=== PATIENT | female | born 1985 | race Caucasian/White ===

== ENCOUNTER 2023-07-16 10:08 | Emergency (ER) | payer OTHER, SELFPAY ==
[2023-07-16 10:14] VITALS: BP 114/71
--- NOTE | 2023-07-16 13:19 | ED.GENMED ---
History of Present Illness
General
Chief Complaint: Musculo-Skeletal Complaint
Source: patient
Exam Limitations: none
Time Seen by Provider: 07/16/23 12:08
Nursing documentation reviewed up to this point in time: agreed with
Travel History
Have you had any contact with someone who has COVID-19?: No
Do you have any symptoms of coronavirus? Fever > 100 degrees, chills, cough, shortness of breath, sore throat, loss of taste or smell, muscle aches, or headache?: No
History of Present Illness
History of Present Illness:
38-year-old female presenting to the emergency department today with concerns of 2 days of discomfort to the right knee after a fall where she landed directly on the knee pain since increased discomfort with movement and range of motion. Denies
fevers or systemic symptoms nausea vomiting or additional concerns no numbness or weakness.
Past History
Past History
ED Past Medical History: None
ED Past Surgical History: (X2), Orthopedic (Right arm fracture repair) and Other (Cervical lymph node biopsy (benign) at age 18.)
Social History
Tobacco: Smoker
Alcohol: Occasional
Drug: None
Personal: Single
Living: with family
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
Family History
Family History: Other (Noncontributory)
Review of Systems
Review of Systems
Allergies reviewed?: Yes
All Other Systems: ROS reviewed and negative except as documented in HPI and ROS
Phy Exam
Physical Exam
Physical Exam:
GENERAL: Alert , in no apparent distress
EYE: pupils equal and reactive
NECK: Supple, no significant adenopathy.
ENT: o/p clr, mmm.
CARDIAC: Regular rate and rhythm .
LUNGS: Clear breath sounds bilaterally, no acute respiratory distress, no wheezes/rales/rhonchi
ABDOMEN: Soft, without focal tenderness, no r/g, no cvat
NEUROLOGICAL: Alert and oriented, no focal neuro deficits
SKIN: Warm and dry, skin intact.
MUSCULOSKELETAL: Swelling and redness to the right knee surrounding the patella. Increased discomfort with range of motion but does have full range of motion. No tenderness throughout the remainder of the knee. Well perfused.
PSYCH: Normal and appropriate interaction.
Course
Orders/Labs/Results
Orders:
Orders
07/16/23 11:36
Knee, Right 4 or More Views [CR Knee- Right 4 Or More View*] Urgent
Comment:
Reason For Exam: pain, trauma
07/16/23 13:18
Knee Immobilizer Right-Treatme ONCE
07/16/23 13:19
Ibuprofen [Motrin] 800 mg PO NOW STA
Vital Signs
Initial and Last Documented VS:
Initial Vital Signs
Temp Pulse Resp BP Pulse Ox
98.5 F 106 18 114/71 98
07/16/23 10:14 07/16/23 10:14 07/16/23 10:14 07/16/23 10:14 07/16/23 10:14
Last Documented Vital Signs
Temp Pulse Resp BP Pulse Ox
98.5 F 106 18 114/71 98
07/16/23 10:14 07/16/23 10:14 07/16/23 10:14 07/16/23 10:14 07/16/23 10:14
MDM/Problems Addressed
MDM/Problems Addressed:
38-year-old female presenting to the emergency department today with concerns of right-sided knee discomfort after falling directly on her knee 2 days ago. Gradually since. Swelling discomfort mainly surrounding the patella. X-rays without signs
of fracture patient generally well-appearing no acute distress otherwise but does have tenderness directly to the patellar region. Likely sprain and potential bursitis to the area. Patient given knee immobilizer and advised for close outpatient
follow-up. Strict return precautions were discussed for any worsening symptoms.
*Critical Care Note
Total Time (30-74mins, 75-104mins- exclusive of procedures): Not Applicable
ED Attending Note
-
Portions of this chart may have been created with voice recognition software.� Occasional wrong word or��sound alike� substitutions may have occurred due to the inherent limitations of voice recognition software.
Discharge Plan
Departure
Patient Disposition: Home (Routine Discharge)
Date of Disposition: 07/16/23
Time of Disposition: 13:30
Patient with high blood pressure during this ER visit?: No
Condition: Good
Covid-19: Not Applicable
Discharge Problem:
Right knee sprain
Instructions: Knee Sprain (DC)
Prescriptions:
New
ibuprofen 600 mg tablet
600 mg PO TID PRN (Reason: Pain) Qty: 20 0RF
No Action
hydrocodone-acetaminophen 1 EACH tablet
1 ea PO DAILY
cephalexin 500 MG tablet
500 mg PO Q6H
Referrals:
Juan Luis Gillespie, [Family Provider] -
Raul Kilpatrick MD [Active] - Follow up in 5-7 days
Activity Restrictions/Additional Instructions:
You came to the emergency department today with concerns of knee discomfort. Please rest ice compress and elevate over the next few days as symptoms will hopefully improve. Please follow closely with orthopedics. Return to the emergency
department for any worsening, new or concerning symptoms.
Discharge Date and Time
Print Language: TURKMEN
[2023-07-16] MEDS: MOTRIN 800 MG PO (13:27)
--- NOTE | 2023-07-17 13:47 | CON.ORTHO ---
Consultation
-
Date/Time Consultation Requested: 1245 PM 07/17/2023
Date/Time Consultation Performed: 130 PM 07/17/2023
Requesting Provider: Pancho
Performing Provider: Shonna
Reason for Consultation: right knee pain
Consultation - Orthopedics
History
HPI: 38-year-old female presented to the [place] [facility] emergency department with complaints of right knee pain. There were concerns of potential septic right knee with overlying cellulitis and orthopedics was consulted for further evaluation and
treatment. She reports that she sustained a fall several days ago with a small superficial abrasion over the infrapatellar region of her right knee. She subsequently experienced worsening pain and redness. She presented to the emergency
department yesterday evening and was discharged. She reported overnight she experienced some fevers and chills with worsening redness swelling and pain prompting return to the emergency department at this morning. She localizes pain to the right
knee. Pain is made worse with direct palpation affected area with any attempted ambulation and motion of the right knee. 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
Allergies / Home Medications
Past medical history: None reported
Past surgical history: , fracture fixation right upper extremity, tendon repair finger
Social history: Smoker, occasional alcohol use, employed as traveling construction superintendent
Family history: Not pertinent
Allergy/AdvReac Type Severity Reaction Status Date / Time
No Known Allergies Allergy Unverified 10/06/21 13:40
�Medication �Instructions �Recorded
ibuprofen 600 mg tablet 600 mg PO TIDPRN PRN MILD PAIN 07/17/23
Vital Signs / Lab Results
Temp Pulse Resp BP Pulse Ox
98.5 F 106 18 114/71 98
07/16/23 10:14 07/16/23 10:14 07/16/23 10:14 07/16/23 10:14 07/16/23 10:14
10 point review systems reviewed and negative unless otherwise stated
General: Pleasant although somewhat uncomfortable appearing
Musculoskeletal right lower extremity
Skin intact, significant erythematous skin changes overlying right knee, moderate soft tissue swelling noted mostly suprapatellar region, palpable warmth
Mild palpable knee effusion
Significant tenderness palpation diffusely throughout knee over underlying erythematous skin changes
Range of motion testing limited by significant pain
Distal extremity warm and pink
Motor sensation gross intact distally
No tenderness palpation about the hip or ankle
Diagnostic studies
X-rays right knee independently by myself show no fracture dislocations but well-preserved joint space. No obvious effusion noted on lateral radiographs
Procedure:
Right knee aspiration
Risks and benefits procedure discussed at length with patient verbal consent was obtained. Specifically we discussed the possibility of seeding aseptic joint given overlying erythematous skin changes concern for cellulitis. There was an area
devoid of erythema over superior lateral knee that was chosen for aspiration. Skin was marked and cleaned with alcohol as well as Betadine. Approximate 4 cc of lidocaine with epinephrine was injected in subcutaneous tissues. 18-gauge needle was
then introduced in the suprapatellar pouch. Approximately 3 cc of bloody fluid was aspirated. Band-Aid was applied.
Assessment / Plan
38-year-old female several days status post fall with subsequent swelling erythema about the right knee. Patient certainly has component of cellulitis. With regards to possibility of septic joint, we were able to obtain several cc of bloody fluid
and will plan to send this for synovial fluid analysis. Would recommend IV antibiotics in the interim. Will follow closely and plan to see patient in the morning for repeat evaluation of right knee. Will plan to keep patient n.p.o. pending
synovial fluid results.
Nonweightbearing right lower extremity
Pain control
Knee immobilizer to right knee
IV antibiotics per primary team
Follow-up synovial fluid results: Cell count, crystals, Gram stain, cultures
N.p.o. prophylactically at midnight
Please reach out any questions or concerns
== END 2023-07-16 13:54 | disposition home or self-care (01) ==
LOC: EMR 10:08
PROVIDERS: EMERGENCY PHYSICIAN Emergency Medicine; FAMILY PHYSICIAN Family Medicine
DX: S83.91XA Sprain of unspecified site of right knee, initial encounter (principal); W19.XXXA Unspecified fall, initial encounter; M19.90 Unspecified osteoarthritis, unspecified site; F17.200 Nicotine dependence, unspecified, uncomplicated
CPT/HCPCS: 99283; 29505; 73564

== ENCOUNTER 2023-07-17 14:29 | Inpatient (IN) | payer OTHER, SELFPAY ==
[2023-07-17] VITALS (36 sets, daily range): BP systolic 81–120; BP diastolic 44–88; BMI 31.1; BMI 30.6
[2023-07-17] MEDS: NSS 1000 IV ×4 (12:46→19:25)
--- NOTE | 2023-07-17 12:51 | ED.GENMED ---
History of Present Illness
General
Chief Complaint: Musculo-Skeletal Complaint
Source: patient and family
Exam Limitations: none
Time Seen by Provider: 07/17/23 12:10
Travel History
Have you had any contact with someone who has COVID-19?: No
Do you have any symptoms of coronavirus? Fever > 100 degrees, chills, cough, shortness of breath, sore throat, loss of taste or smell, muscle aches, or headache?: No
History of Present Illness
History of Present Illness:
Patient fell 3 days ago onto her knee. Seen yesterday for increasing knee pain. Comes back with progressive knee pain fever to 104 overnight shaking chills. Increased trouble bearing weight.
Past History
Past History
ED Past Medical History: None
ED Past Surgical History: (X2), Orthopedic (Right arm fracture repair) and Other (Cervical lymph node biopsy (benign) at age 18.)
Social History
Tobacco: Smoker
Alcohol: Occasional
Drug: None
Personal: Single
Living: with family
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
Family History
Family History: Other (Noncontributory)
Review of Systems
Review of Systems
Constitutional: Reports fever and chills
Respiratory: Reports no symptoms
ABD/GI: Reports no symptoms
: Reports no symptoms
Phy Exam
Physical Exam
Physical Exam:
GENERAL: Alert and oriented in no apparent distress, but appears uncomfortable
EYE: Orbits normal.
NECK: Supple, nontender
ENT: Pharynx without erythema
CARDIAC: Regular rate and rhythm without any obvious murmurs.
LUNGS: Clear breath sounds,normal
ABDOMEN: Soft, without focal tenderness or distention
NEUROLOGICAL: Alert and oriented , grossly non-focal
SKIN: Warm and dry, erythema to the right knee surrounding the joint. Small open wound at the subpatellar area.
MUSCULOSKELETAL: Right knee joint effusion. Mildly warm. Some pain with joint motion. Significantly decreased range of motion
PSYCH: Normal and appropriate interaction.
Course
Orders/Labs/Results
Orders:
Orders
07/17/23 12:30
IV Insert/Care/Rem.- Treatment PRN
Urinalysis Reflex To Culture Urgent
0.9% Sodium Chloride 1000 ml [Nss] 1,000 ml IV BOLUS
Ketorolac [Toradol] 15 mg IV NOW STA
07/17/23 12:31
Test Result ONCE
07/17/23 12:43
Basic Metabolic Panel Urgent
CRP [C-Reactive Protein] Urgent
Complete Blood Count/With Diff Urgent
ESR [Erythrocyte Sed Rate] Urgent
HCG, Serum Qualitative Screen Urgent
Manual Differential Urgent
Blood Culture Q30M
JAQUELINE Source: Blood/Venous
Specimen Description:
07/17/23 12:49
Acetaminophen [Tylenol] 650 mg PO NOW STA
07/17/23 12:53
Blood Culture Q30M
JAQUELINE Source: Blood/Venous
Specimen Description:
07/17/23 12:58
0.9% Sodium Chloride 1000 ml [Nss] 1,300 ml IV NOW STA
Piperacillin/Tazo 4.5 Gram [Zosyn] 4.5 gram in 100 ml IV NOW
07/17/23 12:59
0.9% Sodium Chloride 1000 ml [Nss] 1,000 ml IV BOLUS
07/17/23 13:16
Lactic Acid Q4H
Comment: CANCEL 2nd LACTIC ACID IF 1st LACTIC ACID IS LESS THAN 2
07/17/23 13:54
Admit/Transfer Patient As Directed
Co-Sign Provider:
Level of Care: Inpatient admission
Assign to:: Heart Failure Unit
Physician / Group: clark sethi
Diagnosis: septic joint
Reason for Hospitalization: sepsis
Expected length of stay greater than two midnights?: Yes
ELOS- Estimated Length of Stay in days: 3
I certify the patient meets the requirements for IP care: Yes
07/17/23 13:55
Code Status As Directed
Resuscitation Status: Full Code
07/17/23 14:15
INFECTIOUS DISEASE CONSULT Routine
Consulting Provider: Zhang Waterman
Was physician already notified: Yes
ORTHOPEDIC CONSULT Routine
Consulting Provider: Raul Kilpatrick
Was physician already notified: Yes
07/17/23 14:20
Vancomycin [Vancocin] 2,000 mg 0.9% Sodium Chloride 500 ml [Nss] 500 ml IV NOW
07/17/23 14:23
Lyme Progressive Urgent
07/17/23 14:25
Body Fluid Cell Count Urgent
What is the Body Fluid: joint
Date Specimen was Collected: 07/17/23
Time Specimen was Collected: 14:22
Comment: with DIFF
Body Fluid Crystals Urgent
What is the Body Fluid: joint
Date Specimen was Collected: 07/17/23
Time Specimen was Collected: 14:22
07/17/23 17:00
Lactic Acid Q4H
Comment: CANCEL 2nd LACTIC ACID IF 1st LACTIC ACID IS LESS THAN 2
07/19/23 11:00
DC Protocol for Telemetry ONCE
Abnormal Lab Results
07/17/23
12:43
WBC 19.4 H 10^3/uL
(4.8-10.8)
RBC 3.82 L 10^6/uL
(4.20-5.40)
Hgb 11.8 L g/dL
(12.0-16.0)
Hct 33.7 L %
(37.0-47.0)
Abs Immat Gran (auto) 1.7 H 10^3/uL
(0-0.05)
Absolute Neuts (auto) 16.4 H 10^3/uL
(1.4-6.5)
Absolute Lymphs (auto) 0.4 L 10^3/uL
(1.2-3.4)
Absolute Monos (auto) 0.8 H 10^3/uL
(0.1-0.6)
Immature Gran % 8.8 H %
(0-0.5)
Neutrophils % 84.3 H %
(42.2-75.2)
Lymphocytes % 2.3 L %
(20.5-51.1)
Abs Neuts (Manual) 17.0 H 10^3/uL
(1.4-6.5)
Band Neutrophils 16 H %
(0-3)
Lymphocytes (Manual) 5 L %
(20-51)
ESR 27 H mm/hour
(0-20)
Sodium 130 L mmol/L
(135-145)
Carbon Dioxide 21 L mmol/L
(22-30)
BUN 22 H mg/dl
(7-17)
Creatinine 1.1 H mg/dL
(0.6-1.0)
Glucose 117 H mg/dl
(70-99)
C-Reactive Protein > 270.00 H mg/L
(0.0-10.00)
07/17/23 12:43
07/17/23 12:43
Vital Signs
Initial and Last Documented VS:
Initial Vital Signs
Temp Pulse Resp BP Pulse Ox
99.4 F 124 16 109/74 98
07/17/23 11:52 07/17/23 11:52 07/17/23 11:52 07/17/23 11:52 07/17/23 11:52
Last Documented Vital Signs
Temp Pulse Resp BP Pulse Ox
99 F 85 16 85/49 98
07/17/23 15:19 07/17/23 15:19 07/17/23 15:19 07/17/23 16:08 07/17/23 15:19
*Critical Care Note
Total Time (30-74mins, 75-104mins- exclusive of procedures): Not Applicable
Update Note
Update Note:
1229.... Sent history and story to orthopedics. Pictures also sent. Cellulitis versus septic arthritis. A little concerned about tapping the joint given the overlying cellulitis. Warrants admission. Orthopedic consult.
1300.... Sepsis dose fluids, antibiotics ordered. Orthopedics coming in. They will be here in 20 to 30 minutes. They did asked to hold off on antibiotics in case they decide to tap the joint.
ED Attending Note
-
Portions of this chart may have been created with voice recognition software.� Occasional wrong word or��sound alike� substitutions may have occurred due to the inherent limitations of voice recognition software.
Discharge Plan
Departure
Patient Disposition: Admit
Date of Disposition: 07/17/23
Time of Disposition: 13:30
Presentation/result/management discussed w/ accepting MD/DO: Orthopedics
Discharge Problem:
Cellulitis versus septic arthritis right, Septic shock
Interventions
Interventions:
*Risk Screen - Suicide Last Done: 07/17/23 11:52
*General Assessment Last Done: 07/17/23 11:52
*Neglect/Abuse Screening Last Done: 07/17/23 11:52
ED- Fall Risk Assessment Last Done: 07/17/23 12:24
*ED COVID-19 Vaccine History Last Done: 07/17/23 12:22
ED-Musculoskeletal Assessment Last Done: 07/17/23 12:24
[2023-07-17] MEDS: TORADOL 15 MG IV (12:52)
[2023-07-17] MEDS: TYLENOL 650 MG PO (12:56)
[2023-07-17 13:10] LABS: % Basophils 0.4 % (0-2); % Eosinophils 0.1 % (0-6); % Immature Granulocytes 8.8 % (0-0.5); % Lymphocytes 2.3 % (20.5-51.1); % Monocytes 4.1 % (1.7-9.3); % Neutrophils 84.3 % (42.2-75.2); Absolute Basophils 0.1 10^3/uL (0-0.2); Absolute Immature Granulocytes 1.7 10^3/uL (0-0.05); Absolute Lymphocytes 0.4 10^3/uL (1.2-3.4); Absolute Monocytes 0.8 10^3/uL (0.1-0.6); Absolute Neutrophils 16.4 10^3/uL (1.4-6.5); Hematocrit 33.7 % (37.0-47.0); Hemoglobin 11.8 g/dL (12.0-16.0); Mean Corpuscular Hgb 30.9 pg (27.0-31.0); Mean Corpuscular Volume 88.2 fL (81.0-99.0); Mean Platelet Volume 9.7 fL (7.4-10.4); Nucleated Red Blood Cells % 0 %; Platelet Count 266 10^3/uL (130-400); Red Blood Cell Count 3.82 10^6/uL (4.20-5.40); White Blood Cell Count 19.4 10^3/uL (4.8-10.8)
[2023-07-17 13:24] LABS: Blood Urea Nitrogen 22 mg/dl (7-17); Calcium 9.3 mg/dl (8.4-10.2); Carbon Dioxide 21 mmol/L (22-30); Chloride 98 mmol/L (98-107); Estimated Creatinine Clearance 68 ml/min; Glucose 117 mg/dl (70-99); Potassium 3.6 mmol/L (3.5-5.1); Sodium 130 mmol/L (135-145); eGFR > 60.00
--- NOTE | 2023-07-17 13:30 | HPS.HSE ---
Family Physician
-
Family Physician: Juan Luis Gillespie
Chief Complaint
-
right knee pain, swelling,redness
History of Present Illness
38 year old with no significant PMH presented to us with right knee redness, swelling, pain. patient had a fall three days ago. she hit her knee on the floor. patient is a cha. noted some abrasion at that time but over the days it got
worse.noted redness and some swelling yesterday. redness and swelling from knee to the thigh. patient was evaluated in the ER last night. patient was sent home on knee immobilizer and Keflex. last night she spiked fever upto 104.. she vomited and
had had diarrhea last night. poor appetite. patient can't bear any weight on the right leg. it hurts and gets sob with walking. stated PEREZ and dizzy. denied chest pain. denied abdominal pain. denied dysuria or hematuria.
patient started on vanco ,Zosyn and fluids in ER. admitting for further management.
Medical History
Past Medical History
Past Medical History: Reports None
Past Surgical History: Reports Other
Additional Past Surgical History:
c section
right fracture arm repair
left finger tendon repair
Social History
Tobacco: Vaping
Alcohol: Occasional
Drug: None
Living: With Family
Employment: Employed (cha)
Family History
Family History: Not pertinent
Allergies / Home Medications
Allergies reflects when Allergies were last updated in [facility].
Home Medications with original date entered in [facility]
Allergy/Medication List:
Allergies
Allergy/AdvReac Type Severity Reaction Status Date / Time
No Known Allergies Allergy Verified 07/17/23 11:51
Home Medications
ibuprofen 600 mg tablet 600 mg PO TIDPRN PRN MILD PAIN 07/17/23
Review of Systems
-
Constitutional: Reports No Symptoms
EENT: Reports No Symptoms
Respiratory: Reports No Symptoms
Cardiac: Reports No Symptoms
Abdomen/GI: Reports No Symptoms
: Reports No Symptoms
Musculoskeletal: Reports Edema (right knee)
Skin: Reports Other (redness, swelling)
Neurological: Reports No Symptoms
Endocrine: Reports No Symptoms
Hematologic/Lymphatic: Reports No Symptoms
Psych: Reports No Symptoms
Physical Exam
Vital Signs
Vital Signs
Temp Pulse Resp BP Pulse Ox
100.8 F H 106 16 105/63 100
07/17/23 12:47 07/17/23 12:47 07/17/23 12:47 07/17/23 13:01 07/17/23 12:47
Physical Exam
General: Well Developed, Well Nourished and No Apparent Distress
HEENT: NormoCephalic, Moist mucous membranes and Atraumatic
Respiratory: Clear
Cardiac: S1/S2 and Regular Rhythm; No Murmur or Rub
GI: Soft, Non Tender, Non Distended and Normal Bowel Sounds; No Organomegaly
Rectal: Deferred by Provider
Musculoskeletal: No Clubbing and No Cyanosis
Skin: Rash and Other (right knee redness, swelling)
Neuro: AO x 3 and Nonfocal/grossly intact
Psych: Calm
Laboratory Results
-
07/17/23 12:43
07/17/23 12:43
Data Reviewed
-
Lab Data: Labs Reviewed by me
Impression/Plan
-
# Septic arthritis
-WBCs 19.4, tachycardia, temperature 100.8
-ESR 27,CRP >270
-Blood culture sent from ER
-ortho tapped the knee the in the ER. fluids sent for culture.
-x ray of right knee with Mild prepatellar soft tissue swelling. No osseous injury appreciated.
-iv vanco and Zosyn
-Tylenol prn for fever
-Dilaudid prn for pain
-ID and orthopedics consulted
# Hyponatremia/acute kidney injury likely dehydration
-Sodium 130, creatinine 1.1
-normal saline continued
-monitor BMP in am
#DVT prophylaxis
-scd
#CODE status
-full code
[2023-07-17 13:46] LABS: Erythrocyte Sed Rate 27 mm/hour (0-20)
[2023-07-17 13:50] LABS: HCG, Serum Qualitative Screen Negative
[2023-07-17 14:03] LABS: C-Reactive Protein > 270.00 mg/L (0.0-10.00)
[2023-07-17] MEDS: ZOSYN 100 IV (14:28)
--- NOTE | 2023-07-17 14:33 | W.PN.UPDATE ---
Update Note
Progress Note Update
I saw and examined the patient.
The RN APPEALS or PA's note was reviewed and I agree with the note.
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 Patient was here in the ED yesterday and was discharged on knee immobilizer. Last night patient had a fever and with
increased swelling prompted patient to come to the ED for evaluation. In the ER patient has leukocytosis along with tachycardia concerning for sepsis. give empric abx. await studies from tap by ortho. ID evaluation. Give fluids. Monitor sodium
and creatinine. Blood culture pending. Knee immobilizer to right knee per orthopedics. Nonweightbearing right lower extremity.
General: Well Developed, Well Nourished and No Apparent Distress
HEENT: NormoCephalic, Moist mucous membranes and Atraumatic
Respiratory: Clear
Cardiac: S1/S2 and Regular Rhythm; No Murmur or Rub
GI: Soft, Non Tender, Non Distended and Normal Bowel Sounds; No Organomegaly
Rectal: Deferred by Provider
Musculoskeletal: No Clubbing and No Cyanosis
Skin: Rash and Other (right knee redness, swelling)
Neuro: AO x 3 and Nonfocal/grossly intact
Psych: Calm
I spent a total of 77 minutes with the patient or on the floor. More than 50% of this time involved counseling and coordination of care.
[2023-07-17] MEDS: VANCOCIN 540 MG IV (15:20)
[2023-07-17] MEDS: NSS 1000 ML IV (15:23)
[2023-07-17 15:51] LABS: Atypical Lymphocytes 1 %; Band Neutrophils 16 % (0-3); Lymphocytes 5 % (20-51); Metamyelocytes 1 % (-); Monocytes 5 % (2-9); Segmented Neutrophils 72 % (42-75)
[2023-07-17 15:52] LABS: Normal RBC Morphology Yes; Platelets Checked Yes; Total Cells Counted 100
[2023-07-17 16:02] LABS: Body Fluid WBC 8240 /CUMM
[2023-07-17 16:03] LABS: Body Fluid Mononuclear 10.8 %; Body Fluid Polymorphonuclear 89.2 %
[2023-07-17 16:05] LABS: Body Fluid Second Tech EYM
[2023-07-17] MEDS: NSS 500 IV (16:09)
[2023-07-17 16:30] LABS: Urine Albumin Trace (Neg - Trace); Urine Bilirubin Negative (Negative); Urine Character Slightly Cloudy (Clear); Urine Color Yellow; Urine Glucose Negative (Negative); Urine Ketone Trace (Negative); Urine Leukocyte Negative (Negative); Urine Nitrite Negative (Negative); Urine Occult Blood Negative (Negative); Urine Specific Gravity 1.015 (<1.030); Urine Urobilinogen Negative (Neg - 1+)
--- NOTE | 2023-07-17 16:56 | EDRN ---
Pt's knee fluid was aspirated and one lavender tube was sent to lab. Pt stated that this was the only sample drawn from the knee, no other samples were seen to be sent for cultures. Spoke to ortho who spoke to Dr. Deleon about which and how many
tubes needed to be aspirated and sent.
--- NOTE | 2023-07-17 17:06 | CON.ID ---
Consultation
-
Date/Time Consultation Requested: 07/17/2023 1415
Date/Time Consultation Performed: 07/17/2023 1700
Requesting Provider: Dr. Dwyer
Performing Provider: Dr. Waterman
Reason for Consultation: Right knee septic arthritis/cellulitis
Chief Complaint / Past History
History of Present Illness
Nikki Rae is a 38-year-old female being evaluated at the request of Dr. Dwyer in regards to right knee cellulitis. History is obtained from chart review, along with patient interview. Patient denies prior medical history, and reports that
she works as a medical technologist generalist/cha. She reports that she was renovating a house approximately 3 days ago and slipped on the paper covering on the floor, falling to her right knee and causing a small abrasion in the area. Over the past 24
hours there is been increasing erythema and discomfort/pain of the area. She also developed a fever to 104 degrees last evening with associated rigors. Because of the symptomatology she came to the emergency room for further evaluation. Here,
workup revealed a leukocytosis. She has been evaluated by Orthopedics and her joint has been aspirated. Infectious Diseases asked to manage further antibiotic therapy.
At this time she notes significant pain with any ambulation or range of motion of the knee. She notes erythema is limited to the area, but also tracks slightly on the medial aspect of the thigh. She denies any groin swelling or pain.
Past History
Past Medical History: None
Past Surgical History:
Allergy History:
No Known Allergies Allergy (Verified 07/17/23 11:51)
Medications Reviewed: Yes
Current Antibiotics:
Vancomycin
Zosyn
Social History
Tobacco: Vaping
Alcohol: None
Drug: None
Living: With Family
Employment: Employed
Family History
Family History: Not Pertinent
Review of Systems
Vital Signs
Temp Pulse Resp BP Pulse Ox
99 F 85 16 101/61 98
07/17/23 15:19 07/17/23 15:19 07/17/23 15:19 07/17/23 17:03 07/17/23 15:19
Physical Exam
Physical Exam
Constitutional: No Acute Distress, Well Developed, Comfortable and Non-toxic
Head: Normocephalic
Eyes: Pupils Equal, Pupils Round, No Conjunctival Hemorrhage and Sclera Anicteric
Oral: No Thrush and No Ulcers
Cardiovascular: S1/S2; Negative S3/S4 or Murmur
Pulmonary: Non Labored; Negative Wheezes, Rales or Rhonchi
Gastrointestinal: Soft, Non Tender, Non Distended and Normal Bowel Sounds
Extremities: Edema (right LE), Erythema (right knee area.) and Pulses; Negative Calf Swelling or Venous Insufficiency
Musculoskeletal: Joint Swelling (right knee)
Skin: Warm and Dry; Negative Rash or Jaundice
Neurological: Awake and Alert
Psychological: Calm
Lab / Diagnostic Study Results
07/17/23 12:43
07/17/23 12:43
Abs Immat Gran (auto) 1.7 10^3/uL (0-0.05) H 07/17/23 12:43
Absolute Neuts (auto) 16.4 10^3/uL (1.4-6.5) H 07/17/23 12:43
Absolute Lymphs (auto) 0.4 10^3/uL (1.2-3.4) L 07/17/23 12:43
Absolute Monos (auto) 0.8 10^3/uL (0.1-0.6) H 07/17/23 12:43
Absolute Basos (auto) 0.1 10^3/uL (0-0.2) 07/17/23 12:43
Total Counted 100 07/17/23 12:43
Immature Gran % 8.8 % (0-0.5) H 07/17/23 12:43
Neutrophils % 84.3 % (42.2-75.2) H 07/17/23 12:43
Lymphocytes % 2.3 % (20.5-51.1) L 07/17/23 12:43
Monocytes % 4.1 % (1.7-9.3) 07/17/23 12:43
Eosinophils % 0.1 % (0-6) 07/17/23 12:43
Basophils % 0.4 % (0-2) 07/17/23 12:43
Abs Neuts (Manual) 17.0 10^3/uL (1.4-6.5) H 07/17/23 12:43
Segmented Neutrophils 72 % (42-75) 07/17/23 12:43
Band Neutrophils 16 % (0-3) H 07/17/23 12:43
Lymphocytes (Manual) 5 % (20-51) L 07/17/23 12:43
ESR 27 mm/hour (0-20) H 07/17/23 12:43
Lactic Acid 2.0 mmol/L (0.7-2.0) 07/17/23 13:16
C-Reactive Protein > 270.00 mg/L (0.0-10.00) H 07/17/23 12:43
Microbiology Results
Micro:
07/17/23 12:53 Blood Culture - Pending
Blood/Venous
07/17/23 12:43 Blood Culture - Pending
Blood/Venous
Imaging:
07/08/2023 Right knee x-ray: Mild prepatellar soft tissue swelling. No significant joint effusion. No displaced fracture or dislocation. Please see full dictation for additional detail.
Assessment / Plan
Right knee pain and swelling
- concern for septic joint versus prepatellar bursitis
Right knee cellulitis
Leukocytosis
Fever
Elevated CRP
Recommendations:
Continue with vancomycin.
Discontinue further Zosyn and transition to cefazolin 2 g IV every 8 hours.
Lower extremity elevation.
Await further culture data to guide antimicrobial therapy.
Follow white count and temperature curve.
--- NOTE | 2023-07-17 17:29 | PHA.VAN.IN ---
Assessment
- Assessment
Renal Function: Unknown baseline
Concomitant Antimicrobials: cefazolin
Plan
- Plan
Initial / Loading Dose: 2000mg - 07/16 15:20
Maintenance Regimen: dosing by level
Monitoring: random 07/17 599
Will initiate with dose by level given unknown baseline renal function / slightly elevated SCR
May be able to transition to scheduled dosing
Pharmacokinetics Vancomycin I
- -
Patient Age: 38
Patient Sex: Female
Vancomycin Day #: 1
Indication: Skin And Soft Tissue
Requesting Provider: Joselyn Valdez
Pertinent Antimicrobial Allergies:
NKDA
Height / Weight:
Height 5 ft 2 in
Actual Weight 77 kg
Pertinent Past Medical History: BMI ~31
- Vital Signs / Lab Results
Temp Pulse Resp BP Pulse Ox
99 F 85 16 101/61 98
07/17/23 15:19 07/17/23 15:19 07/17/23 15:19 07/17/23 17:03 07/17/23 15:19
Lab Results - Hematology
07/17/23
12:43
WBC 19.4 H
Band Neutrophils 16 H
Lab Results - Chemistry
07/17/23
12:43
BUN 22 H
Creatinine 1.1 H
Estimated Creat Clear 68
07/17/23 07/17/23
13:16 17:00
Lactic Acid 2.0 Cancelled
Lab Results - Urine
07/17/23
16:20
Urine Nitrite (Reflex) Negative
Leukocyte Esterase Rfl Negative
--- NOTE | 2023-07-17 18:19 | PTCARENOTE ---
Addendum entered by Alissa Covarrubias RN 07/17/23 19:13:
BP 84/50 d/w Dr. Dwyer IV Bolus ordered and initiated.
Original Note:
Admitted to 3341- IMU monitors in place, IV Vanco infusing at 270ml/hr. Admission completed bedside. C/o pain 7/10 right knee- red/ warm to touch small abrasion distal. Bandaid intact to lateral side knee. BP still low
[2023-07-17] MEDS: DILAUDID 1 MG IV (19:35)
[2023-07-17] MEDS: ANCEF 10 IV (22:06)
[2023-07-18] VITALS (18 sets, daily range): BP systolic 88–102; BP diastolic 50–78
[2023-07-18] MEDS: DILAUDID 1 MG IV ×5 (00:50→23:39)
[2023-07-18] MEDS: TYLENOL 650 MG PO ×4 (01:07→23:05)
--- NOTE | 2023-07-18 01:19 | PTCARENOTE ---
Pt resting comfortably in bed; Reports 9/10 pain in R knee. +1/2 edema R knee with redness - area marked with skin marker. Dilaudid provided for pain with + effect. 1 Liter bolus completed with improvement noted in BP; SR/ST on monitor. Temp ~
99.0; Will continue to monitor and assess.
[2023-07-18] MEDS: ANCEF 10 IV ×3 (06:11→22:05)
[2023-07-18] MEDS: NSS 1000 IV ×2 (06:11→17:05)
[2023-07-18 06:49] LABS: Hematocrit 25.5 % (37.0-47.0); Mean Corp Hgb Conc. 35.3 g/dL (33.0-37.0); Mean Corpuscular Hgb 30.7 pg (27.0-31.0); Mean Platelet Volume 9.5 fL (7.4-10.4); Platelet Count 180 10^3/uL (130-400); Red Blood Cell Count 2.93 10^6/uL (4.20-5.40); Red Cell Dist. Width 13.2 % (11.5-14.5); White Blood Cell Count 10.4 10^3/uL (4.8-10.8)
[2023-07-18 07:14] LABS: Vancomycin Random 6.3 ug/ml
[2023-07-18 07:19] LABS: Blood Urea Nitrogen 13 mg/dl (7-17); Calcium 7.4 mg/dl (8.4-10.2); Carbon Dioxide 16 mmol/L (22-30); Chloride 107 mmol/L (98-107); Estimated Creatinine Clearance 106 ml/min; Glucose 97 mg/dl (70-99); Potassium 2.9 mmol/L (3.5-5.1); Sodium 128 mmol/L (135-145); eGFR > 60.00
--- NOTE | 2023-07-18 08:24 | PHA.VAN.FU ---
Vancomycin Assessment / Plan
- Assessment
Renal Function: SCR Decreasing (1.1 to 0.7)
WBC's are: Trending Down
In the past 24 hrs, patient has been: Febrile
Concomitant Antimicrobials: Cefazolin
- Assessment - Therapeutic Drug Monitoring
Random Level: R = 6.3 ~ 15hrs post Vanc 2gm
- Dosing Plan
Adjust Regimen to: Vanc 1250mg IV Q12H
New Regimen Predicts: AUC (544), Peak (35), Trough (13.3)
Dosing Comments: SCr improved 1.1 to 0.7. Switch to scheduled dosing
- Monitoring Plan
No level(s) ordered at this time: Consider levels after 07/18 1800 dose.
- Follow Up
Pharmacy will continue to follow.
Vancomycin Follow UP
- -
Patient Age: 38
Patient Sex: Female
Vancomycin Day #: 2
Indication: Skin And Soft Tissue
Requesting Provider: Joselyn Valdez
Pertinent Antimicrobial Allergies:
NKDA
Height / Weight:
Height 5 ft 2 in
Actual Weight 75.9 kg
Pertinent Past Medical History: BMI ~31
- Vital Signs / Lab Results
Temp Pulse Resp BP Pulse Ox
100.7 F H 91 30 90/58 97
07/18/23 03:10 07/17/23 23:45 07/17/23 23:45 07/17/23 23:45 07/18/23 01:42
Lab Results - Hematology
07/17/23 07/18/23
12:43 06:35
WBC 19.4 H 10.4
Band Neutrophils 16 H
Lab Results - Chemistry
07/17/23 07/18/23
12:43 06:35
BUN 22 H 13
Creatinine 1.1 H 0.7
Estimated Creat Clear 68 106
07/17/23 07/17/23
13:16 17:00
Lactic Acid 2.0 Cancelled
Lab Results - Urine
07/17/23
16:20
Urine Nitrite (Reflex) Negative
Leukocyte Esterase Rfl Negative
Therapeutic Drug Monitoring
Random Vancomycin 6.3 ug/ml 07/18/23 06:35
--- NOTE | 2023-07-18 08:46 | W.PN.ID1 ---
Date of Service
Date of Service: July 18, 2023
Today's Communication
Continue antibiotics
Assessment / Plan
Right knee pain and swelling
- concern for septic joint versus prepatellar bursitis
Right knee cellulitis
Leukocytosis
Fever
Elevated CRP
Recommendations:
Continue with vancomycin.
Continue cefazolin 2 g IV every 8 hours.
Lower extremity elevation.
Await further culture data to guide antimicrobial therapy.
Follow white count and temperature curve.
����������������������������������������������������������
Chief Complaint
-: Other (Right knee cellulitis)
Subjective / Review of Systems
Patient seen and examined. Reports ongoing right knee pain. Continues to feel ill.
Vital Signs / Physical Exam
Vital Signs
Vital Signs
Temp Pulse Resp BP Pulse Ox
100.7 F H 91 30 90/58 97
07/18/23 03:10 07/17/23 23:45 07/17/23 23:45 07/17/23 23:45 07/18/23 01:42
Physical Exam
Constitutional: No Acute Distress, Comfortable and Non-toxic
Eyes: Sclera Anicteric
Cardiovascular: S1/S2; Negative S3/S4
Pulmonary: Non Labored
Extremities: Edema (Right leg), Erythema (Right knee area) and Pulses
Musculoskeletal: Other (Right knee swelling and edema. Significant tenderness)
Neurological: Awake and Alert
Objective Data
Lab Data
Lab Results
07/18/23 06:35
07/18/23 06:35
ESR 27 mm/hour (0-20) H 07/17/23 12:43
Estimated Creat Clear 106 ml/min 07/18/23 06:35
Lactic Acid Cancelled 07/17/23 17:00
C-Reactive Protein > 270.00 mg/L (0.0-10.00) H 07/17/23 12:43
Most recent labs reviewed.
Micro Results:
07/17/23 12:53 Blood Culture - Pending
Blood/Venous
07/17/23 12:43 Blood Culture - Pending
Blood/Venous
Imaging:
07/08/2023 Right knee x-ray: Mild prepatellar soft tissue swelling. No significant joint effusion. No displaced fracture or dislocation. Please see full dictation for additional detail.
[2023-07-18] MEDS: KCL 270 MEQ IV (08:57)
[2023-07-18] MEDS: KCL 40 MEQ PO (09:13)
[2023-07-18] MEDS: SODIUM BICARBONATE 1300 MG PO ×3 (09:13→22:04)
[2023-07-18] MEDS: VANCOCIN 275 MG IV ×2 (09:57→17:06)
--- NOTE | 2023-07-18 10:19 | W.PN.ORTHO ---
Today's Communication / Plan
-
38-year-old female right knee cellulitis associated effusion on clinical exam. The aspiration results from yesterday are not consistent with a septic joint. However does seem like there is been some actual increase in palpable effusion compared to
examination yesterday. The aspiration yesterday was somewhat limited by surrounding erythema in terms of where we could aspirate the knee I would not state has been a marked improvement in her examination. I will plan to reexamine her this
afternoon. If there is no significant improvement, might consider ultrasound-guided aspiration. I think that perhaps IR might be more successful and confirming whether or not there is in fact a effusion and might be able to work around the
surrounding erythema to avoid potentially seeding the joint by aspirating through overlying cellulitis.
Nonweightbearing right lower extremity
Continue IV antibiotics
Pain control
Will plan to reexamine later today
Subjective
.
.:
Saw patient this morning around 8 AM. She continues complain of quite significant pain localized to the right knee. Her at bedside. She does not think there is been significant change and pain or appearance of her knee since yesterday.
Vital Signs and Labs
.
Vital Signs and Labs:
Lab Results
07/18/23 06:35
07/18/23 06:35
Temp Pulse Resp BP Pulse Ox
102.2 F H 91 30 90/58 97
07/18/23 07:52 07/17/23 23:45 07/17/23 23:45 07/17/23 23:45 07/18/23 01:42
Physical Exam
-
Musculoskeletal right lower extremity
Moderate swelling throughout suprapatellar region. There is erythema noted throughout anterior knee soft tissues with some tracking up the medial thigh. The erythema does seem less intense compared to yesterday although this does not seem to have
receded much
Range of motion testing deferred
Diffuse tenderness palpation soft tissues surrounding the knee
Palpable warmth
Superficial abrasion noted infrapatellar region
There is palpable knee effusion my examination
Positive EHL, FHL, ankle dorsiflexion, plantarflexion
--- NOTE | 2023-07-18 12:58 | W.PN.HOSP.TC ---
Today's Communication/Plan
-
Monitor vital signs see plan
Continue antibiotics
Repeat potassium
If blood pressure does not improve with fluids then will start pressors
Assessment / Plan
Assessment / Plan
General: Well Developed, Well Nourished and No Apparent Distress
HEENT: NormoCephalic, Moist mucous membranes and Atraumatic
Respiratory: Clear
Cardiac: S1/S2 and Regular Rhythm; No Murmur or Rub
GI: Soft, Non Tender, Non Distended and Normal Bowel Sounds
Musculoskeletal: No Clubbing and No Cyanosis
Skin: Rash and Other (right knee redness, swelling)
Neuro: AO x 3 and Nonfocal/grossly intact
Psych: Calm
Sepsis secondary to septic arthritis versus prepatellar bursitis
Follow fever curve
-ESR 27,CRP >270
-Blood culture pending
-ortho tapped the knee the in the ER. WBC 8240; still has significant swelling. Ortho will see how patient does later today and will determine to see if need IR guided aspirate
-x ray of right knee with Mild prepatellar soft tissue swelling. No osseous injury appreciated.
-iv vanco and ancef
-Tylenol prn for fever
-Dilaudid prn for pain
-ID and orthopedics following
Blood pressure continues to be marginally low, monitor. If blood pressure does not improve with fluids then will start on levo
# Hyponatremia
Monitor sodium
Check urine and serum studies
Anemia, suspect anemia chronic disease
Monitor
Hypokalemia
Replete
Acute kidney injury
Resolved
#DVT prophylaxis
lovenox
#CODE status
-full code
I spent a total of 52 minutes with the patient or on the floor. More than 50% of this time involved counseling and coordination of care.
Anticipated Discharge: > 48 hours
Subjective/Interval History
-
Date of Service: July 18, 2023
Does have pain
Objective Data
-
Labs:
Laboratory Results
07/18/23
06:35
WBC 10.4
Hgb 9.0 L D
Hct 25.5 L
Plt Count 180 D
Sodium 128 L
Potassium 2.9 L
Chloride 107
Carbon Dioxide 16 L
BUN 13
Creatinine 0.7
Glucose 97
Calcium 7.4 L D
Vital Signs:
Vital Signs
Temp Pulse Resp BP Pulse Ox
102.2 F H 91 30 90/58 97
07/18/23 07:52 07/17/23 23:45 07/17/23 23:45 07/17/23 23:45 07/18/23 01:42
I&O
07/17/23 07/18/23 07/19/23
06:59 06:59 06:59
Intake Total 1810 / 1810 670 / 670
Output Total 350 / 350 400 / 400
Balance 1460 / 1460 270 / 270
--- NOTE | 2023-07-18 13:56 | W.PN.UPDATE ---
Update Note
Progress Note Update
Patient seen again with continued ongoing swelling, pain over knee
Exam with ongoing erythema, warmth swelling and effusion.
Did discuss with IR and they will perform ultrasound study and if effusion, attempt aspiration.
Definitive plan pending results.
--- NOTE | 2023-07-18 15:04 | W.PN.UPDATE ---
Update Note
Progress Note Update
- US guided aspiration of R knee effusion. ~10 mL of joint fluid obtained. Serous in nature.
- Additional ultrasound evaluation showed a more superficial pocket of fluid in the prepatellar soft tissue. US guided aspiration of this also performed yielding only a couple of mL of fluid despite needle repositioning and use of 18g needle.
- Samples from both locations sent. Pt tolerated well.
--- NOTE | 2023-07-18 15:06 | PTCARENOTE ---
Addendum entered by Alissa Covarrubias RN 07/18/23 18:21:
Returned bandaid intact right knee. Face flushing resolved, pain much more tolerable 5/10 currently. Remains tachy 110s up to 120s with activity, BP 90s/50s. IVF infusing, drinking lots of fluid today. Voids jeffery but improving quantity.
Addendum entered by Alissa Covarrubias RN 07/18/23 18:20:
Has chills vs rigors intermittently, face was flushed red- Tylenol given prior to departure to [facility].
Original Note:
IV Dilaudid given for 10 right knee pain and is heading to [facility] for knee aspiration. Voided prior, IVF infusing- IV antibiotics as ordered. She remains sinus tach 90s-110s, BPs 90s/60 temp 98.8
Has been getting oob to bsc with assistance of her s.o- NWB to the right leg. Right knee is marked but redness has enlarged today.
[2023-07-18 15:09] LABS: Osmolality Serum 272 mOsm/kg (275-300)
[2023-07-18 15:50] LABS: Body Fluid Mononuclear 13.2 %; Body Fluid Polymorphonuclear 86.8 %; Body Fluid WBC 2437 /CUMM
[2023-07-18 15:52] LABS: Body Fluid Second Tech CMC
[2023-07-18 16:23] LABS: Osmolality Urine 294 mOsm/kg (300-900)
[2023-07-18 16:41] LABS: Urine Sodium < 5 mmol/L (30-90)
[2023-07-18] MEDS: LOVENOX 40 MG SC (17:05)
[2023-07-19] VITALS (23 sets, daily range): BP systolic 0–115; BP diastolic 58–89; PULSE 104–107; O2SAT 98
[2023-07-19] MEDS: NSS 1000 IV ×2 (02:19→20:50)
--- NOTE | 2023-07-19 02:24 | PTCARENOTE ---
Pt AAOX3. Pt having pain, PRN medication given (see MAR). PT Right leg redness growing outside lines, new drawn. Pt having fever, Tylenol given. Pt was able to use the bathroom, RW with 1 assist. Education given. Assessment care and vitals as
charted.
[2023-07-19] MEDS: DILAUDID 1 MG IV ×5 (03:41→22:26)
[2023-07-19 04:39] LABS: Hematocrit 26.8 % (37.0-47.0); Hemoglobin 9.2 g/dL (12.0-16.0); Mean Corp Hgb Conc. 34.3 g/dL (33.0-37.0); Mean Corpuscular Hgb 30.4 pg (27.0-31.0); Mean Corpuscular Volume 88.4 fL (81.0-99.0); Mean Platelet Volume 9.9 fL (7.4-10.4); Platelet Count 179 10^3/uL (130-400); Red Blood Cell Count 3.03 10^6/uL (4.20-5.40); Red Cell Dist. Width 13.2 % (11.5-14.5); White Blood Cell Count 11.1 10^3/uL (4.8-10.8)
[2023-07-19 05:06] LABS: ALT (SGPT) 35 U/L (0-35); AST (SGOT) 59 U/L (14-36); Albumin 2.7 g/dl (3.5-5.0); Alkaline Phosphatase 88 U/L (38-126); Blood Urea Nitrogen 5 mg/dl (7-17); Calcium 7.9 mg/dl (8.4-10.2); Carbon Dioxide 21 mmol/L (22-30); Chloride 102 mmol/L (98-107); Estimated Creatinine Clearance 106 ml/min; Glucose 92 mg/dl (70-99); Potassium 3.7 mmol/L (3.5-5.1); Sodium 131 mmol/L (135-145); Total Bilirubin 0.8 mg/dl (0.2-1.3); Total Protein 4.9 g/dl (6.3-8.2); eGFR > 60.00
[2023-07-19 05:10] LABS: Erythrocyte Sed Rate 76 mm/hour (0-20)
[2023-07-19 05:18] LABS: C-Reactive Protein > 270.00 mg/L (0.0-10.00)
[2023-07-19] MEDS: ANCEF 10 IV ×3 (05:25→22:25)
[2023-07-19] MEDS: VANCOCIN 275 MG IV (06:14)
[2023-07-19] MEDS: TYLENOL 650 MG PO ×2 (07:40→13:56)
--- NOTE | 2023-07-19 08:23 | W.PN.ORTHO ---
Today's Communication / Plan
-
38-year-old female with right knee cellulitis as well as soft tissue abscess. I did see the patient several times today. This morning her symptoms continue to worsen. I explained to her that the aspiration performed yesterday was not consistent
with a septic joint. I had further discussion today with the primary team as well as the infectious disease specialist regarding her worsening symptoms. We all mutually agreed to proceed with MRI of the right knee to evaluate for abscess and fluid
collection as the cultures did return positive for Streptococcus pyogenes from fluid collection seen on ultrasound study performed yesterday by interventional radiology. MRI today did reveal an abscess within the anterior medial soft tissues
overlying the knee. I did return to the patient's room to discuss these findings. I discussed this also with the primary team and infectious disease team. Again we are in agreement with proceeding with surgical intervention in the form of
irrigation and debridement of the soft tissue abscess as patient's clinical exam continued to worsen with increased swelling, worsening erythema and persistent fevers despite appropriate antibiotic therapy. I discussed this in detail with the
patient as well as her partner at bedside as well as her father. We discussed risks benefits and alternatives of surgery. We discussed the expected perioperative postoperative course. After discussion, verbal consent was obtained. We did discuss
proceeding with surgery this evening given her deterioration of clinical examination. Plan to obtain written consent prior to surgery.
Subjective
.
.:
Patient was seen evaluated this morning. She continues to complain of swelling and pain that she reports is actually worsening over the right knee. She does think that the redness is spreading. Her partner is at her bedside.
Vital Signs and Labs
.
Vital Signs and Labs:
Lab Results
07/19/23 04:28
07/19/23 04:28
Temp Pulse Resp BP Pulse Ox
101.6 F H 117 22 99/70 96
07/19/23 07:30 07/19/23 08:00 07/19/23 08:00 07/19/23 08:00 07/19/23 08:00
Synovial fluid aspirate US guided right knee 07/17 WBC cell count 2437
Physical Exam
-
MSK RLE
Erythema diffusely over anterior knee, with some extension along medial thigh proximally
soft tissue swelling overlying suprapatellar region knee, no infrapatellar or prepatellar fluctuance or fluid palpable
ROM limited by pain
Diffusely TTP over knee soft tissues in area of erythema
distal motor and sensation intact
--- NOTE | 2023-07-19 10:35 | PHA.VAN.FU ---
Vancomycin Assessment / Plan
- Assessment
Renal Function: Stable
WBC's are: Stable
In the past 24 hrs, patient has been: Febrile
Concomitant Antimicrobials: Cefazolin
- Dosing Plan
Continue: 1250mg Q12H
- Monitoring Plan
Peak Level: 07/19/23 @2100
Trough Level: 07/20/23 @0530
- Follow Up
Pharmacy will continue to follow.
Vancomycin Follow UP
- -
Patient Age: 38
Patient Sex: Female
Vancomycin Day #: 3
Indication: Skin And Soft Tissue
Requesting Provider: Joselyn Valdez
Pertinent Antimicrobial Allergies:
NKDA
Height / Weight:
Height 5 ft 2 in
Actual Weight 75.9 kg
Pertinent Past Medical History: BMI ~31
- Vital Signs / Lab Results
Temp Pulse Resp BP Pulse Ox
101.6 F H 105 14 101/89 98
07/19/23 07:30 07/19/23 10:26 07/19/23 10:26 07/19/23 10:26 07/19/23 10:26
Lab Results - Hematology
07/17/23 07/18/23 07/19/23
12:43 06:35 04:28
WBC 19.4 H 10.4 11.1 H
Band Neutrophils 16 H
Lab Results - Chemistry
07/17/23 07/18/23 07/19/23
12:43 06:35 04:28
BUN 22 H 13 5 L
Creatinine 1.1 H 0.7 0.7
Estimated Creat Clear 68 106 106
Albumin 2.7 L
07/17/23 07/17/23
13:16 17:00
Lactic Acid 2.0 Cancelled
Microbiology Results
07/18/23 14:53 Body Fluid Culture - Preliminary
Synovial Fluid No Growth After 18-24 Hours
Gram Stain - Preliminary
07/18/23 14:53 Body Fluid Culture - Preliminary
Synovial Fluid Streptococcus pyogenes
Gram Stain - Preliminary
07/17/23 12:53 Blood Culture - Preliminary
Blood/Venous No Growth in 24 hours- Final report to follow
07/17/23 12:43 Blood Culture - Preliminary
Blood/Venous No Growth in 24 hours- Final report to follow
Therapeutic Drug Monitoring
Random Vancomycin 6.3 ug/ml 07/18/23 06:35
--- NOTE | 2023-07-19 11:02 | W.PN.ID1 ---
Date of Service
Date of Service: July 19, 2023
Today's Communication
See below�
Assessment / Plan
Right knee pain and swelling
- bursa culture positive for group A strep.
- Joint culture pending.
- ?developing myositis
Right knee cellulitis
-Swelling now involves thigh.
Leukocytosis
Fever
Elevated CRP
Recommendations:
Continue cefazolin 2 g IV every 8 hours. Given recovery of group A strep, will add clindamycin 900 mg IV every 8 hours.
Check CPK
Lower extremity elevation.
Case discussed with Orthopedics, Hospitalist and On-call Radiology.
Will order stat MRI of the right knee, thigh and calf.
Await results.
����������������������������������������������������������
Chief Complaint
-: Other (Right knee cellulitis; right lower extremity)
Subjective / Review of Systems
Patient seen and examined. Reports ongoing right leg discomfort,, along with increased swelling and some redness.
Vital Signs / Physical Exam
Vital Signs
Vital Signs
Temp Pulse Resp BP Pulse Ox
101.6 F H 105 14 101/89 98
07/19/23 07:30 07/19/23 10:26 07/19/23 10:26 07/19/23 10:26 07/19/23 10:26
Physical Exam
Constitutional: No Acute Distress, Comfortable and Non-toxic
Eyes: No Conjunctival Hemorrhage and Sclera Anicteric
Cardiovascular: S1/S2; Negative S3/S4
Pulmonary: Non Labored
Extremities: Edema (Right leg) and Erythema (Right leg and knee)
Musculoskeletal: Joint Swelling and Joint Effusion
Neurological: Awake and Alert
Psychological: Calm
Objective Data
Lab Data
Lab Results
07/19/23 04:28
07/19/23 04:28
ESR 76 mm/hour (0-20) H 07/19/23 04:28
Estimated Creat Clear 106 ml/min 07/19/23 04:28
Lactic Acid Cancelled 07/17/23 17:00
Total Bilirubin 0.8 mg/dl (0.2-1.3) 07/19/23 04:28
AST 59 U/L (14-36) H 07/19/23 04:28
ALT 35 U/L (0-35) 07/19/23 04:28
Alkaline Phosphatase 88 U/L (38-126) 07/19/23 04:28
C-Reactive Protein > 270.00 mg/L (0.0-10.00) H 07/19/23 04:28
Most recent labs reviewed.
Micro Results:
07/18/23 14:53 Body Fluid Culture - Preliminary
Synovial Fluid No Growth After 18-24 Hours
Gram Stain - Preliminary
07/18/23 14:53 Body Fluid Culture - Preliminary
Synovial Fluid Streptococcus pyogenes
Gram Stain - Preliminary
07/17/23 12:53 Blood Culture - Preliminary
Blood/Venous No Growth in 24 hours- Final report to follow
07/17/23 12:43 Blood Culture - Preliminary
Blood/Venous No Growth in 24 hours- Final report to follow
Imaging:
07/08/2023 Right knee x-ray: Mild prepatellar soft tissue swelling. No significant joint effusion. No displaced fracture or dislocation. Please see full dictation for additional detail.
Care Review
Plan reviewed with: Physician (Hospitalist, Orthopedics, Radiology)
--- NOTE | 2023-07-19 12:06 | PTCARENOTE ---
Patient sent to MRI. Pt allowed to go non-monitored per .
--- NOTE | 2023-07-19 13:20 | PTCARENOTE ---
Patient returned from MRI. Reports pain 06/26 following Dilaudid IV given before MRI. IV antibiotics given per JUN. Pt has not complaints at this time.
--- NOTE | 2023-07-19 13:46 | W.PN.HOSP.TC ---
Today's Communication/Plan
-
Monitor vitals
See plan
MRI pending
Bursa culture growing strep pyogenes
Continue with Ancef, clindamycin added
Follow fever curve, Tylenol for fever
Assessment / Plan
Assessment / Plan
General: Well Developed, Well Nourished and No Apparent Distress
HEENT: NormoCephalic, Moist mucous membranes and Atraumatic
Respiratory: Clear
Cardiac: S1/S2 and Regular Rhythm; No Murmur or Rub
GI: Soft, Non Tender, Non Distended and Normal Bowel Sounds
Skin: Rash and Other (right knee redness, swelling)
Neuro: AO x 3 and Nonfocal/grossly intact
Psych: Calm
Sepsis secondary to septic arthritis versus prepatellar bursitis
Follow fever curve, continues to spike fever
-ESR 27,CRP >270
-Blood culture NGTD
-ortho tapped the knee the in the ER. WBC 8240; still has significant swelling so Ortho spoke with IR who performed ultrasound-guided aspiration of the knee and bursa. Culture from bursa growing strep pyogenes, wound culture pending. Discussed in
length with infectious disease and orthopedics, plan for MRI today. Swelling and erythema appears to be worse. Could be developing myositis
Check CK
Nonweightbearing right lower extremity, knee immobilizer to the right knee
-Now on Ancef, started on clindamycin
-Tylenol prn for fever
-Dilaudid prn for pain
-ID and orthopedics following
Blood pressure continues to be marginally low, monitor. If blood pressure does not improve with fluids then will start on levo
Metabolic acidosis
Sodium bicarb
Slow improving
# Hyponatremia
Monitor sodium; slowly improving
urine and serum studies
Anemia, suspect anemia chronic disease
Monitor
Hypokalemia
improved
Acute kidney injury
Resolved
#DVT prophylaxis
lovenox
#CODE status
-full code
I discussed hospital course in great detail with patient's mother on 07/19/23 since patient gave me permission to speak to her. She is aware that multiple consultants are involved in patient's case and are trying to manage patient's infection.
I spent a total of 52 minutes with the patient or on the floor. More than 50% of this time involved counseling and coordination of care.
Anticipated Discharge: > 48 hours
Subjective/Interval History
-
Date of Service: July 19, 2023
Continues to spike fever
Objective Data
-
Labs:
Laboratory Results
07/19/23
04:28
WBC 11.1 H
Hgb 9.2 L
Hct 26.8 L
Plt Count 179
Sodium 131 L
Potassium 3.7 D
Chloride 102
Carbon Dioxide 21 L
BUN 5 L
Creatinine 0.7
Glucose 92
Calcium 7.9 L
Total Bilirubin 0.8
AST 59 H
ALT 35
Alkaline Phosphatase 88
Vital Signs:
Vital Signs
Temp Pulse Resp BP Pulse Ox
99.0 F 105 14 101/89 98
07/19/23 11:05 07/19/23 10:26 07/19/23 10:26 07/19/23 10:26 07/19/23 10:26
I&O
07/18/23 07/19/23 07/20/23
06:59 06:59 06:59
Intake Total 1810 / 1810 9505 / 9505
Output Total 350 / 350 2750 / 2750
Balance 1460 / 1460 6755 / 6755
[2023-07-19] MEDS: CLEOCIN 50 IV ×2 (13:57→20:55)
[2023-07-19] MEDS: NSS IV ×2 (14:28→17:38)
--- NOTE | 2023-07-19 15:09 | CM ---
Patient with Dx Sepsis secondary to septic arthritis versus prepatellar bursitis s/p US guided aspiration of R knee effusion.
PT 07/18; Right LE NWB with knee immobilizer, recommendation TBD.
OT recommends HH.
Met with patient who resides with her parents and 2 children, ages 9 & 7, in a 2 story house.
The patient is normally independent in ADLs and ambulation.
She fell last 07/13 and has had difficulty the last few days ambulating at home and doing stairs.
The patient has no DME or prior VN.
PCP - Juan Luis Gillespie
Pharmacy - [facility]
Offered VN and patient declined.
The patient requested crutches for use at home instead of using a RW, saying the house does not have large rooms to maneuver RW---> message sent to Jessica PT & Radha OT.
Plan continue to follow patient's mobility.
Plan home, possibly with RW vs crutches.
--- NOTE | 2023-07-19 15:46 | W.PN.UPDATE ---
Update Note
Progress Note Update
Received notification from the nursing community health program representative that the patient's mother would like to speak with the physician regarding the care of her daughter. While in the patient's room, and in the presence of the patient, patient's significant other
and nurse, a phone call was made via the patient's significant others phone. Upon the phone being answered and informing the patient's mother that she was on speaker phone and I would be happy to discuss the care for daughter.
She had multiple questions about the care ranging from commenting upon care before I was directly involved, and the current level of care. Specifically, she asked why a CT scan was not performed within 30 minutes of her in the emergency room during
her first visit to the ER. She also had questions about the discharge at that first visit. I relayed to her that I was unable to comment upon care before I was directly involved with the patient.
I noted that the patient has been on appropriate antibiotics since my first assessment with her approximately 48 hours ago when I saw her in the emergency room. I informed her of the present cultures (growth of group A strep), and that the MRI
which was performed on a stat basis earlier today revealed a collection. She asked about likelihood of limb loss, and I informed her that I could not comment upon that at this time as I was not able to formulate a probability. Finally, she
informed me that she was in law school, and 'that nothing better happened to my daughter, or else.' I informed her that she was on appropriate antibiotics, and would be under the continued care of both the hospitalist, myself and Orthopedics.
Following the completion of the phone call, I immediately spoke with the Risk Management office here at [facility] regarding the phone call.
--- NOTE | 2023-07-19 16:14 | PTCARENOTE ---
Patient's mother came to the nursing station and asked for the nurse of her daughter. She then proceeded to tell this RN that she was in the lobby of the hospital, with her phone on speaker phone and the lady next to her heard the conversation
between her, Infectious Disease and her daughter. She then stated that the lady downstairs told her that she should speak with 'his attending because of the way he spoke to her.' I advised that I could get my Nurse Rehabilitation Attendant but she said no
I don't want to speak to a nurse. Then reported that she needed to leave to go to an ultrasound in the hospital and to have the 'attending' of ID call her and therefore 'we do not have to speak again.' I confirmed the mother's phone number in the
chart.
Risk Management Julio Perez, Nurse Rehabilitation Attendant Lilli Braxton, Nursing Gas Meter Installer Helper and made aware.
[2023-07-19 16:17] LABS: Lyme Antibody Screen, EIA Equivocal (Negative)
[2023-07-19 17:27] LABS: Creatine Phosphokinase 40 U/L (30-135)
[2023-07-19] MEDS: LOVENOX SC (17:38)
--- NOTE | 2023-07-19 17:41 | PTCARENOTE ---
Pt sent to OR in bed. Pre-op checklist completed. Linens changed and CHG cloths performed. Pt sent with chart and IVF.
--- NOTE | 2023-07-19 19:22 | OR.RPT ---
Addendum entered and electronically signed by Raul Kilpatrick MD 07/19/23 19:42:
I did call to speak with the patient's father at her request after surgery and discussed details with him. All questions were answered.
Original Note:
Operative Report
Operative Report
Anesthesia Type:
General
Operative Indications:
Left knee abscess
Operative Findings :
Left knee abscess anterior medial soft tissues, no communication with joint
Complications:
None
Implants:
None
Procedure and Technique:
Irrigation debridement right knee
INDICATIONS FOR PROCEDURE:
38-year-old female presented to the emergency department after a fall at work. She had worsening right knee pain and swelling with associated redness over her right knee. She was experiencing fevers and chills at home. There was concern emergency
department for possible septic right knee. I was asked to evaluate the patient in the emergency room and was only able to aspirate several cc of bloody fluid. This was sent for analysis and she was subsequently admitted to the hospitalist service
started on IV antibiotics. She had worsening of symptoms and given the significant erythema limitations for further aspirations of the joint, patient underwent an ultrasound-guided evaluation of the right knee that revealed very minimal right knee
effusion in addition to fluid collection in the anterior medial soft tissues of the knee. The knee joint was aspirated and synovial cell count was again not concerning for septic joint. However the abscess did reveal Streptococcus pyogenes on
culture. Patient continued to have worsening symptoms and was recommended to obtain an MRI which again revealed myositis diffuse edema soft tissues as well as fluid collection over anterior medial knee. MRI was not consistent with a septic joint.
Given patient's continued worsening symptoms despite appropriate antibiotic treatment as well as the abscess revealed on MRI, it was my recommendation to proceed with irrigation and debridement of the right knee abscess after discussing this with
both the patient, primary team and infectious disease specialist. I discussed the risks benefits and alternatives. We discussed the usual expected perioperative postoperative course. After discussion, written informed consent was obtained for I&D
right knee.
OPERATIVE PROCEDURE:
Patient was seen identified the preoperative holding area. Operative extremity was marked. All questions were addressed and answered. She was taken to the operating room placed supine on the OR table. General anesthesia was administered.
Nonsterile tourniquet was applied. Operative extremity was then prepped and draped in a normal sterile fashion. Timeout was again performed identifying the correct operative extremity. Preoperative antibiotics were held for cultures. Tourniquet
was inflated standard anterior approach the knee was taken. Sharp dissection was carried through skin and subcutaneous tissues. There was an egress of cloudy purulent appearing fluid. Cultures were taken. Ancef was then given. Surgical
dissection was taken down to the deep fascial layer and blunt dissection was taken medially and laterally. There was no disruption to the joint capsule. Blunt dissection medially did reveal further egress of cloudy fluid. Sharp debridement was
performed and tissue was excised utilizing dissection scissors and rongeur. Soft tissue was also debrided utilizing curette back to bleeding healthy appearing tissue. Irrigation was performed with Pulsavac lavage with 6 L of normal saline
solution. Satisfied with the extent of surgery, wound was closed in a layered fashion. There was 0 PDS suture that was used to close down the space both medially and laterally. A Hemovac drain was placed and taken out the superior lateral
soft tissues. Subcutaneous layer was closed with 2-0 Vicryl. Skin was closed with 2-0 nylon. Sterile dressing was applied consisting of Xeroform, 4 x 4 gauze, ABD and Webril as well as Venu bandage. Tourniquet was released and patient was then
placed in a knee immobilizer. Anesthesia was reversed and she was taken to PACU in stable condition. Postoperative plans include weightbearing to patient's tolerance upper extremity in a knee immobilizer. Will follow-up cultures appropriately
Disposition:
PACU stable condition
[2023-07-19] MEDS: DILAUDID 0.5 MG IV (19:44)
[2023-07-19] MEDS: DEMEROL 12.5 MG IV ×2 (19:57→20:25)
--- NOTE | 2023-07-19 21:05 | PTCARENOTE ---
Received Pt from CH[facility] CENTRE MANAGER. Pt AAOX3. Pt stating she is 'feeling better'. Right leg in immobilizer. Vascular checks done.
[2023-07-19] MEDS: COLACE 100 MG PO (22:25)
[2023-07-20] VITALS (12 sets, daily range): BP systolic 97–119; BP diastolic 61–86
--- NOTE | 2023-07-20 01:11 | PTCARENOTE ---
Pt requesting that her boyfriend Janes be first on contact list and her father second. Pt also requesting that her mother be taken off of the contact list. Education given on removing her mother from contact list, that no Dr's will be contacting or
giving any information to her mother. Pt made her wishes clearly known. Pt telling RN. 'its better if she is taken off'. Contacts updated.
[2023-07-20] MEDS: CLEOCIN 50 IV ×3 (04:09→19:36)
[2023-07-20] MEDS: NSS IV ×2 (04:09→10:24)
[2023-07-20 05:05] LABS: Hematocrit 27.1 % (37.0-47.0); Hemoglobin 9.3 g/dL (12.0-16.0); Mean Corp Hgb Conc. 34.3 g/dL (33.0-37.0); Mean Corpuscular Hgb 29.9 pg (27.0-31.0); Mean Corpuscular Volume 87.1 fL (81.0-99.0); Mean Platelet Volume 10.6 fL (7.4-10.4); Platelet Count 207 10^3/uL (130-400); Red Blood Cell Count 3.11 10^6/uL (4.20-5.40); Red Cell Dist. Width 13.5 % (11.5-14.5); White Blood Cell Count 10.6 10^3/uL (4.8-10.8)
[2023-07-20 05:39] LABS: ALT (SGPT) 23 U/L (0-35); AST (SGOT) 32 U/L (14-36); Albumin 2.7 g/dl (3.5-5.0); Alkaline Phosphatase 104 U/L (38-126); Blood Urea Nitrogen 7 mg/dl (7-17); Calcium 7.8 mg/dl (8.4-10.2); Carbon Dioxide 20 mmol/L (22-30); Chloride 110 mmol/L (98-107); Estimated Creatinine Clearance 124 ml/min; Glucose 142 mg/dl (70-99); Potassium 3.6 mmol/L (3.5-5.1); Sodium 135 mmol/L (135-145); Total Bilirubin 0.6 mg/dl (0.2-1.3); eGFR > 60.00
[2023-07-20] MEDS: COLACE 100 MG PO ×2 (05:57→19:36)
[2023-07-20] MEDS: NSS 1000 IV ×2 (05:58→15:55)
[2023-07-20] MEDS: ANCEF 10 IV ×3 (05:59→21:16)
[2023-07-20] MEDS: MIRALAX 17 GRAMS PO (08:53)
[2023-07-20] MEDS: COLACE PO ×2 (08:54→10:23)
--- NOTE | 2023-07-20 09:06 | W.PN.ID1 ---
Date of Service
Date of Service: July 20, 2023
Today's Communication
Continue current antibiotics
Assessment / Plan
Right knee pain and swelling
- bursa culture positive for group A strep.
- Joint culture pending.
- myositis
Right knee cellulitis
-Still with thigh edema, but less tenderness today.
Leukocytosis
Fever
Elevated CRP
Recommendations:
Continue cefazolin 2 g IV every 8 hours and clindamycin 900 mg IV every 8 hours.
CPK not elevated.
Patient's status post I&D of collection.
Lower extremity elevation.
Monitor white count and temperature curve.
����������������������������������������������������������
Chief Complaint
-: Other (Right knee cellulitis; right lower extremity cellulitis)
Subjective / Review of Systems
Patient seen and examined. S/p OR last p.m. Currently feeling markedly improved. Less discomfort in the leg.
Review of Systems: No Fever and No Chills
Vital Signs / Physical Exam
Vital Signs
Vital Signs
Temp Pulse Resp BP Pulse Ox
97.3 F 77 22 103/75 99
07/20/23 03:05 07/20/23 06:00 07/20/23 06:00 07/20/23 06:00 07/20/23 06:00
Physical Exam
Constitutional: No Acute Distress, Comfortable and Non-toxic
Head: Normocephalic
Eyes: No Conjunctival Hemorrhage and Sclera Anicteric
Cardiovascular: S1/S2; Negative S3/S4
Pulmonary: Non Labored
Gastrointestinal: Soft
Extremities: Edema (Right lower extremity. Mild tenderness of the right thigh but decreased from yesterday's exam.)
Musculoskeletal: Other (Right leg currently in immobilizer, with right knee area wrapped in Venu wrap. Hemovac in place with serous fluid.)
Skin: Warm and Dry; Negative Rash or Jaundice
Neurological: Awake and Alert
Psychological: Calm
Objective Data
Lab Data
Lab Results
07/20/23 04:20
07/20/23 04:20
ESR 76 mm/hour (0-20) H 07/19/23 04:28
Estimated Creat Clear 124 ml/min 07/20/23 04:20
Lactic Acid Cancelled 07/17/23 17:00
Total Bilirubin 0.6 mg/dl (0.2-1.3) 07/20/23 04:20
AST 32 U/L (14-36) 07/20/23 04:20
ALT 23 U/L (0-35) 07/20/23 04:20
Alkaline Phosphatase 104 U/L (38-126) 07/20/23 04:20
C-Reactive Protein > 270.00 mg/L (0.0-10.00) H 07/19/23 04:28
Most recent labs reviewed.
Micro Results:
07/19/23 18:45 Wound Culture - Pending
Knee - Right Gram Stain - Preliminary
07/19/23 18:45 Anaerobic Culture - Pending
Knee - Right
07/17/23 12:53 Blood Culture - Preliminary
Blood/Venous No Growth in 48 hours- Final report to follow
07/17/23 12:43 Blood Culture - Preliminary
Blood/Venous No Growth in 48 hours- Final report to follow
07/18/23 14:53 Body Fluid Culture - Preliminary
Synovial Fluid No Growth After 18-24 Hours
Gram Stain - Preliminary
07/18/23 14:53 Body Fluid Culture - Preliminary
Synovial Fluid Streptococcus pyogenes
Gram Stain - Preliminary
Imaging:
07/08/2023 Right knee x-ray: Mild prepatellar soft tissue swelling. No significant joint effusion. No displaced fracture or dislocation. Please see full dictation for additional detail.
[2023-07-20] MEDS: DILAUDID 1 MG IV ×3 (11:13→22:35)
--- NOTE | 2023-07-20 11:29 | W.PN.HOSP.TC ---
Today's Communication/Plan
-
monitor vitals
see plan
cw abx
drain per ortho
follow cx
would defer PT/OT rec to ortho
pain control
laxatives
Assessment / Plan
Assessment / Plan
General: Well Developed, Well Nourished and No Apparent Distress
HEENT: NormoCephalic, Moist mucous membranes and Atraumatic
Respiratory: Clear
Cardiac: S1/S2 and Regular Rhythm
GI: Soft, Non Tender, Non Distended and Normal Bowel Sounds
MSK: right knee immobilizer,+ drain
Neuro: AO x 3 and Nonfocal/grossly intact
Psych: Calm
Sepsis secondary to strep pyogenes abscess and cellulitis
Does have associated myositis
Follow fever curve, continues to spike fever
-ESR 27,CRP >270
-Blood culture NGTD
-first ortho tapped knee in ED; then later since didnt improve US guided aspiration was done by IR. still with no improvement 07/18, MRI was done which showed abscess. Status post OR by orthopedics 07/19/2023 with I&D. Currently has drain. Monitor.
Culture from bursa growing strep pyogenes, wound culture from abscess is also growing strep pyogenes.
Joint cx pending
Nonweightbearing right lower extremity, knee immobilizer to the right knee
-Now on Ancef, started on clindamycin
pain control
-ID and orthopedics following
blood pressure slowly improving
Metabolic acidosis
monitor
Constipation
laxatives
# Hyponatremia
Monitor sodium; slowly improving
Anemia, suspect anemia chronic disease
Monitor
Hypokalemia
improved
Acute kidney injury
Resolved
#DVT prophylaxis
lovenox
#CODE status
-full code
I discussed hospital course in great detail with patient's mother on 07/19/23 since patient gave me permission to speak to her. She is aware that multiple consultants are involved in patient's case and are trying to manage patient's infection. Per
staff mother is not point of contact anymore.
Anticipated Discharge: > 48 hours
Subjective/Interval History
-
Date of Service: July 20, 2023
has some pain
Objective Data
-
Labs:
Laboratory Results
07/20/23
04:20
WBC 10.6
Hgb 9.3 L
Hct 27.1 L
Plt Count 207
Sodium 135
Potassium 3.6
Chloride 110 H
Carbon Dioxide 20 L
BUN 7
Creatinine 0.5 L
Glucose 142 H
Calcium 7.8 L
Total Bilirubin 0.6
AST 32
ALT 23
Alkaline Phosphatase 104
Vital Signs:
Vital Signs
Temp Pulse Resp BP Pulse Ox
98.0 F 87 20 110/78 99
07/20/23 07:00 07/20/23 10:00 07/20/23 10:00 07/20/23 10:00 07/20/23 06:00
I&O
07/19/23 07/20/23 07/21/23
06:59 06:59 06:59
Intake Total 9505 / 9505 3970 / 3970
Output Total 2750 / 2750 0 / 0
Balance 6755 / 6755 3970 / 3970
--- NOTE | 2023-07-20 16:34 | W.PN.ORTHO ---
Today's Communication / Plan
-
38-year-old female right knee cellulitis postop day 1 status post right knee abscess I&D with some improvement
Weightbearing as tolerated right lower extremity in knee immobilizer
PT OT
Pain control
Antibiotics per infectious disease
Follow-up labs, intraoperative cultures growing strep pyogenes
Intra-articular aspirate results to be negative for any infection with synovial white cell count not concerning for infection
Daily dry dressing changes
Drain pulled today
Will continue to follow clinically closely
Subjective
.
.:
Patient comfortable at rest in bed. Partner at bedside. She does report that she is able to get out of bed today. She reports that she did feel improvement this morning. Currently she is complaining of some soreness and throbbing area of
surgical incision
Vital Signs and Labs
.
Vital Signs and Labs:
Lab Results
07/20/23 04:20
07/20/23 04:20
Temp Pulse Resp BP Pulse Ox
98.0 F 72 24 106/69 99
07/20/23 07:00 07/20/23 14:00 07/20/23 14:00 07/20/23 14:00 07/20/23 06:00
Physical Exam
-
Musculoskeletal right lower extremity
Incision visualized without drainage or significant anoop-incisional erythema or induration
There continues to be evidence of erythema of the right anterior knee soft tissues and medial thigh more proximally although again this appears slightly less intense on inspection
There continues to be some moderate tenderness palpation over soft tissues anterior knee although there is some improvement
Patient is able to actively flex knee to about 40 degrees with some pain
Distal motor and sensation to baseline
--- NOTE | 2023-07-20 16:51 | CM ---
Addendum entered by Elmira Rodriguez RN 07/20/23 17:14:
Per ortho notes; Daily dry dressing changes.
Original Note:
Patient with Dx right knee cellulitis postop day 1 status post right knee abscess I&D. WBAT RLE in knee immobilizer.
PT 07/18; Right LE NWB with knee immobilizer, recommendation TBD.
OT recommends HH.
Spoke with [facility]; they are waiting to confirm with the patient who her employer is and her [employer] insurance.
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 Reference # [id number]. Solar Sales Manager: unknown.
Patient will have assistance at home from boyfriend Janes who lives with her, and Dennis/brother's girlfriend who is a nurse.
Patient is still unsure she will agree to VN for SN for wound care or PT.
Plan follow up PT/OT if needs RW or crutches.
Plan follow up with Solar Sales Manager for any VN or DME.
Plan home, possibly with VN and DME, as approved by [employer].
[2023-07-20] MEDS: LOVENOX 40 MG SC (17:57)
[2023-07-20] MEDS: TYLENOL 650 MG PO (17:59)
--- NOTE | 2023-07-20 18:14 | PTCARENOTE ---
SR on tele today, BP 100-120/ 60-80s, neurovasc checks to RLE normal see flowsheet. Immobilizer intact- changed dressing this pm- hemovac out as well. Remains in large knee immobilizer. IVF infusing, Tolerating PO Diet. Received Dilaudid x2
this shift with good relief, just given Tylenol for pain as well. She is constipated, discussed narcotics/bowels- took Colace and Miralax today- will watch for effects as shes on IV Antibx too. Diet discussed and complied. Ambulated to bathroom
with walker and now up in recliner.
--- NOTE | 2023-07-20 19:20 | PTCARENOTE ---
Pt aaox3, cooperative. Pt oob in chair, ambulated in room with RW, no issues. Pt stood at the sink and brushed her teeth, back in bed without issues. c/o 10/26 r knee pain, Pt states 'Can I get something for pain that is a pill, the iv stuff doesn't
last that long.' Contacted [facility], suma po ordered. Pt aware. Call acosta within reach.
[2023-07-20] MEDS: DILAUDID 2 MG PO (21:15)
[2023-07-20] MEDS: MAALOX 30 ML PO (22:39)
[2023-07-21] VITALS: BP 104/62
[2023-07-21 02:00] VITALS: BP 98/63
[2023-07-21] MEDS: DILAUDID 1 MG IV ×4 (03:21→23:33)
[2023-07-21] MEDS: NSS 1000 IV (03:21)
[2023-07-21] MEDS: MAALOX 30 ML PO (03:25)
[2023-07-21 04:00] VITALS: BP 115/81
[2023-07-21] MEDS: CLEOCIN 50 IV ×3 (05:00→20:32)
[2023-07-21] MEDS: ANCEF 10 IV ×3 (05:00→21:49)
[2023-07-21 06:00] VITALS: BP 110/72
[2023-07-21 06:42] LABS: Hematocrit 24.9 % (37.0-47.0); Hemoglobin 8.5 g/dL (12.0-16.0); Mean Corp Hgb Conc. 34.1 g/dL (33.0-37.0); Mean Corpuscular Hgb 30.2 pg (27.0-31.0); Mean Corpuscular Volume 88.6 fL (81.0-99.0); Mean Platelet Volume 10.1 fL (7.4-10.4); Platelet Count 226 10^3/uL (130-400); Red Blood Cell Count 2.81 10^6/uL (4.20-5.40); Red Cell Dist. Width 13.6 % (11.5-14.5); White Blood Cell Count 8.6 10^3/uL (4.8-10.8)
[2023-07-21 06:54] LABS: ALT (SGPT) 20 U/L (0-35); AST (SGOT) 32 U/L (14-36); Albumin 2.6 g/dl (3.5-5.0); Alkaline Phosphatase 107 U/L (38-126); Blood Urea Nitrogen 12 mg/dl (7-17); Calcium 7.8 mg/dl (8.4-10.2); Carbon Dioxide 22 mmol/L (22-30); Chloride 108 mmol/L (98-107); Estimated Creatinine Clearance 124 ml/min; Glucose 94 mg/dl (70-99); Potassium 3.1 mmol/L (3.5-5.1); Sodium 135 mmol/L (135-145); Total Bilirubin 0.3 mg/dl (0.2-1.3); Total Protein 4.8 g/dl (6.3-8.2); eGFR > 60.00
[2023-07-21 08:00] VITALS: BP 117/79
[2023-07-21] MEDS: MIRALAX 17 GRAMS PO (08:00)
[2023-07-21] MEDS: COLACE 100 MG PO ×2 (08:00→20:31)
--- NOTE | 2023-07-21 09:55 | W.PN.ID1 ---
Date of Service
Date of Service: July 21, 2023
Today's Communication
Continue abx. See below...
Assessment / Plan
Right knee pain and swelling
- bursa culture positive for group A strep.
- Joint culture pending.
- myositis
Right knee cellulitis
-Still with thigh edema, but less tenderness today.
Leukocytosis
Fever
Elevated CRP
Recommendations:
Continue cefazolin 2 g IV every 8 hours (d#5) and clindamycin 900 mg IV every 8 hours (d#3).
Can D/C clinda after last dose today.
Continue cefazolin. Would complete a 2-week course (tentatively).
Home IV sheet will be placed on paper chart.
Blood cultures negative. Okay to place PICC line.
Lower extremity elevation.
Monitor white count and temperature curve.
Will follow in the office.
����������������������������������������������������������
Chief Complaint
-: Other (Right knee cellulitis; right lower extremity cellulitis)
Subjective / Review of Systems
Patient seen and examined. Still with some right thigh tenderness, but overall feels improved. Knee drain has been removed.
Review of Systems: No Fever and No Chills
Vital Signs / Physical Exam
Vital Signs
Vital Signs
Temp Pulse Resp BP Pulse Ox
98.1 F 71 25 110/72 99
07/21/23 07:05 07/21/23 06:00 07/21/23 06:00 07/21/23 06:00 07/21/23 06:00
Physical Exam
Constitutional: No Acute Distress, Comfortable and Non-toxic
Eyes: No Conjunctival Hemorrhage and Sclera Anicteric
Cardiovascular: S1/S2; Negative S3/S4
Pulmonary: Clear and Non Labored
Gastrointestinal: Soft
Extremities: Edema (right thigh/leg), Erythema (stable to improved) and Pulses; Negative Venous Insufficiency
Musculoskeletal: Other (Right knee dressed.)
Skin: Warm and Dry; Negative Rash or Jaundice
Neurological: AO x 3
Psychological: Calm
Objective Data
Lab Data
Lab Results
07/21/23 05:59
07/21/23 05:59
ESR 76 mm/hour (0-20) H 07/19/23 04:28
Estimated Creat Clear 124 ml/min 07/21/23 05:59
Lactic Acid Cancelled 07/17/23 17:00
Total Bilirubin 0.3 mg/dl (0.2-1.3) 07/21/23 05:59
AST 32 U/L (14-36) 07/21/23 05:59
ALT 20 U/L (0-35) 07/21/23 05:59
Alkaline Phosphatase 107 U/L (38-126) 07/21/23 05:59
C-Reactive Protein 193.70 mg/L (0.0-10.00) H 07/21/23 05:59
Most recent labs reviewed.
Micro Results:
07/17/23 12:53 Blood Culture - Preliminary
Blood/Venous No Growth in 72 hours- Final report to follow
07/17/23 12:43 Blood Culture - Preliminary
Blood/Venous No Growth in 72 hours- Final report to follow
07/18/23 14:53 Body Fluid Culture - Preliminary
Synovial Fluid No Growth After 48 Hours
Gram Stain - Preliminary
07/18/23 14:53 Body Fluid Culture - Final
Synovial Fluid Streptococcus pyogenes
Gram Stain - Final
07/19/23 18:45 Anaerobic Culture - Preliminary
Knee - Right Culture pending. Anaerobic cultures are examined after 3
days incubation. Additional information to follow.
07/19/23 18:45 Wound Culture - Preliminary
Knee - Right Streptococcus pyogenes
Gram Stain - Preliminary
Imaging:
07/08/2023 Right knee x-ray: Mild prepatellar soft tissue swelling. No significant joint effusion. No displaced fracture or dislocation. Please see full dictation for additional detail.
--- NOTE | 2023-07-21 10:46 | W.PN.HOSP.TC ---
Today's Communication/Plan
-
Continue with antibiotics per ID
Will require IV antibiotic
Case management
Pain control
Bowel regimen
Transfer out of IMU
Assessment / Plan
Assessment / Plan
General: Well Developed, Well Nourished and No Apparent Distress
HEENT: NormoCephalic, Moist mucous membranes and Atraumatic
Respiratory: Clear
Cardiac: S1/S2 and Regular Rhythm
GI: Soft, Non Tender, Non Distended and Normal Bowel Sounds
MSK: right knee immobilizer,+ drain
Neuro: AO x 3 and Nonfocal/grossly intact
Psych: Calm
Sepsis secondary to strep pyogenes abscess and cellulitis
Does have associated myositis
Follow fever curve, continues to spike fever
-ESR 27,CRP >270
-Blood culture NGTD
-first ortho tapped knee in ED; then later since didnt improve US guided aspiration was done by IR. still with no improvement 07/18, MRI was done which showed abscess. Status post OR by orthopedics 07/19/2023 with I&D. Currently has drain. Monitor.
Culture from bursa growing strep pyogenes, wound culture from abscess is also growing strep pyogenes.
Joint cx pending
Nonweightbearing right lower extremity, knee immobilizer to the right knee
-Now on Ancef, started on clindamycin and plan to discontinue after last dose today
pain control
-Patient will require IV antibiotics.
-Pain control patient also follow-up with standing OxyContin p.o. started p.o. Percocet which per patient has helped in the past.
-ID and orthopedics following
blood pressure slowly improving
Metabolic acidosis
monitor
Constipation
laxatives Colace, senna and Dulcolax ordered
# Hyponatremia
Resolved.
Anemia, suspect anemia chronic disease
Monitor
Hypokalemia
Replete and monitor.
Acute kidney injury
Resolved
#DVT prophylaxis
lovenox
#CODE status
-full code
Transfer out of IMU
PT/OT-VN and DME upon dc.
Anticipated Discharge: > 48 hours
Subjective/Interval History
-
Date of Service: July 21, 2023
States remains with right knee pain
Did not sleep much last night
Objective Data
-
Labs:
Laboratory Results
07/21/23
05:59
WBC 8.6
Hgb 8.5 L
Hct 24.9 L
Plt Count 226
Sodium 135
Potassium 3.1 L
Chloride 108 H
Carbon Dioxide 22
BUN 12
Creatinine 0.6
Glucose 94
Calcium 7.8 L
Total Bilirubin 0.3
AST 32
ALT 20
Alkaline Phosphatase 107
Vital Signs:
Vital Signs
Temp Pulse Resp BP Pulse Ox
98.1 F 72 21 117/79 100
07/21/23 07:05 07/21/23 08:00 07/21/23 08:00 07/21/23 08:00 07/21/23 08:00
I&O
07/20/23 07/21/23 07/22/23
06:59 06:59 06:59
Intake Total 3970 / 3970 2400 / 2400
Output Total 0 / 0 450 / 450
Balance 3970 / 3970 1950 / 1950
Data Reviewed
-
Total Time Spent with Patient (in minutes): 55
[2023-07-21] MEDS: ROXICODONE 5 MG PO ×2 (11:31→15:16)
[2023-07-21] MEDS: DULCOLAX 10 MG PO (11:32)
[2023-07-21] MEDS: KCL 40 MEQ PO (12:32)
[2023-07-21] MEDS: SENNA SYRUP 8.80000000000000071 MG PO ×2 (12:32→20:31)
--- NOTE | 2023-07-21 15:24 | CM ---
Patient with Dx right knee cellulitis s/p right knee abscess I&D. PICC line pending.
WBAT RLE in knee immobilizer. PT Eval 07/20; no needs, issued RW & plan to issue crutches, patient able to do stairs. OT 07/18 recommends HH.
Script received from Dr Waterman for IV cefazolin 2gm Q8h via PICC, end date 08/04/23.
[facility] [phone][facility] healthcare customer service provided Claim # [id number] for date of injury/date of loss 07/14/23.
Left phone message requesting callback from Eliane Go, Acquisitions Assistant to auth outpatient services for home IV infusion, and VN (if needed).
Spoke with patient who agrees to going home with IV infusion, and feels she will be able to administer the IV Abx herself 3x/day as ordered, and agrees to having [facility] provide the med/supplies and nurse for teaching visits. Provided
reassurance that [facility] nurse will do teaching visit here before discharge. Provided info that approval for home infusion will be obtained by [facility] and CM also contacted her Workers Comp Acquisitions Assistant in that regard. Patient is aware
that PICC line will be placed. She reconfirms that she does not feel the need for VN for PT/OT at home.
Patient provided new home address that was given to [facility]: [address] [place] [address] [address], [place] [address].
Plan follow up with [facility] if home infusion approved and teaching visit completed.
Plan home with [facility] for Home IV Infusion, with PICC line, with RW & crutches.
--- NOTE | 2023-07-21 15:48 | CM ---
Patient with Dx right knee cellulitis s/p right knee abscess I&D. Per Ortho Notes: Daily dry dressing changes. PICC line pending.
WBAT RLE in knee immobilizer. PT Eval 07/20; no needs, issued RW & plan to issue crutches, patient able to do stairs. OT 07/18 recommends HH.
Script received from Dr Waterman for IV cefazolin 2gm Q8h via PICC, end date 08/04/23.
Phone call to [facility] [employer] ); customer advocate provided Claim # [id number] for date of injury/date of loss 07/14/23.
Left phone message requesting callback from Eliane Go, Accounting Specialist to auth outpatient services for home IV infusion, and VN (if needed).
Spoke with patient who agrees to going home with IV infusion, and feels she will be able to administer the IV Abx herself 3x/day as ordered, and agrees to having [facility] provide the med/supplies and nurse for teaching visits. Provided
reassurance that [facility] nurse will do teaching visit here before discharge. Provided info that approval for home infusion will be obtained by [facility] and CM also contacted her Workers Comp Accounting Specialist in that regard. Patient is aware
that PICC line will be placed. She reconfirms that she does not feel the need for VN for nurse for dressing changes, as she feels she can do this herself.
Patient provided new home address that was given to [facility]: [address] [place] [address], [place] [address].
Plan follow up with [facility] if home infusion approved and teaching visit completed.
Plan home with [facility] for Home IV Infusion, with PICC line, with RW & crutches.
[2023-07-21] MEDS: LOVENOX 40 MG SC (17:50)
--- NOTE | 2023-07-21 18:13 | PTCARENOTE ---
Ambulated few times to bathroom with walker today. Has been constipated, Dulcolax and senna given this pm and had small results so far- will continue meds. Attempted Roxycodone 5mg today was tearful 10/10 pain after 2.5 hrs. D/w IV Dilaudid
administered and will try increased dose Ciara with next administration. Dressing changed out Right knee- the thigh area remains slightly reddened and warm, new area right upper lateral thigh is red/ hot- Providers aware. Midline placed this pm.
Emotional support provided as she is very stoic, follow up care discussed, appreciative of care.
--- NOTE | 2023-07-21 19:04 | W.PN.ORTHO ---
Today's Communication / Plan
-
38-year-old female postop day 2 status post I&D right knee abscess with improvement. CRP downtrending.
Weightbearing as tolerated right lower extremity and knee immobilizer
PT OT
DVT prophylaxis per primary team
Continue IV antibiotics per factious disease recommendations
Medical management per primary team
No further orthopedic intervention planned
Would recommend outpatient follow-up in 10 days upon discharge
Will continue to follow clinically
Subjective
.
.:
Patient resting comfortably in bed with partner at bedside. Does report some continued pain right knee and thigh but does think that this is improving. She notes some redness over the lateral aspect of her thigh the proximal aspect of her knee
immobilizer and does attribute this to the knee immobilizer.
Vital Signs and Labs
.
Vital Signs and Labs:
Lab Results
07/21/23 05:59
07/21/23 05:59
Temp Pulse Resp BP Pulse Ox
98.3 F 72 21 117/79 100
07/21/23 15:00 07/21/23 08:00 07/21/23 08:00 07/21/23 08:00 07/21/23 08:00
Physical Exam
-
MSK right lower extremity
Skin intact with sutures visualized anterior knee. No active drainage or expressible drainage. No palpable induration
There is erythema again noted throughout anterior soft tissues of the medial thigh and lateral thigh although again this appears to be receding compared to previous evaluation
There continues to be some tenderness palpation anoop-incisional a anterior knee soft tissues
Range of motion testing deferred
Distal motor sensation at baseline
[2023-07-21] MEDS: ROXICODONE 10 MG PO (20:43)
--- NOTE | 2023-07-21 23:37 | PTCARENOTE ---
Pt c/o moderate to severe pain at incision site on R knee. Pain managed per JUN. Pt educated on pharmacologic pain measures and importance of trying PO medications before stronger IV meds. Pt agreed, tried PO roxicodone first, which relieved pain
temporarily. Pt called approximately three hours later in severe pain requesting additional pain management, IV diluadid given per JUN. Call acosta within reach
[2023-07-22 04:37] LABS: Hematocrit 25.1 % (37.0-47.0); Hemoglobin 8.7 g/dL (12.0-16.0); Mean Corp Hgb Conc. 34.7 g/dL (33.0-37.0); Mean Corpuscular Hgb 30.3 pg (27.0-31.0); Mean Corpuscular Volume 87.5 fL (81.0-99.0); Mean Platelet Volume 9.3 fL (7.4-10.4); Platelet Count 288 10^3/uL (130-400); Red Blood Cell Count 2.87 10^6/uL (4.20-5.40); Red Cell Dist. Width 13.9 % (11.5-14.5); White Blood Cell Count 9.8 10^3/uL (4.8-10.8)
[2023-07-22 05:07] LABS: ALT (SGPT) 19 U/L (0-35); AST (SGOT) 39 U/L (14-36); Albumin 2.4 g/dl (3.5-5.0); Alkaline Phosphatase 105 U/L (38-126); Blood Urea Nitrogen 10 mg/dl (7-17); Calcium 7.9 mg/dl (8.4-10.2); Carbon Dioxide 25 mmol/L (22-30); Chloride 103 mmol/L (98-107); Estimated Creatinine Clearance 124 ml/min; Glucose 89 mg/dl (70-99); Potassium 3.7 mmol/L (3.5-5.1); Sodium 135 mmol/L (135-145); Total Bilirubin 0.4 mg/dl (0.2-1.3); Total Protein 4.7 g/dl (6.3-8.2); eGFR > 60.00
--- NOTE | 2023-07-22 05:35 | PTCARENOTE ---
Rec'd pt from ICU. Pt AAOx2, on 12L midflow cannula, resting comfortably in bed. VS as documented. Call acosta within reach. Bed alarm in place for patient safety.
[2023-07-22] MEDS: MIRALAX 17 GRAMS PO (06:09)
[2023-07-22] MEDS: ROXICODONE 10 MG PO (06:09)
[2023-07-22] MEDS: SENNA SYRUP 8.80000000000000071 MG PO (06:09)
[2023-07-22] MEDS: ANCEF 10 IV ×2 (06:09→14:25)
[2023-07-22] MEDS: COLACE 100 MG PO (06:09)
[2023-07-22 07:45] VITALS: BP 121/78
--- NOTE | 2023-07-22 08:28 | PTCARENOTE ---
Assumed care of patient at beginning of this shift from previous RN. Right upper outer thigh has an area of redness that is circular in shape, warm, slightly firm and tender to touch. Dr Haq notified via tiger text and Dr Mondragon notified when
on unit. Patient reports she has had 2 loose bms; Dr Shay made aware.
[2023-07-22] MEDS: TYLENOL 650 MG PO ×3 (08:44→15:49)
--- NOTE | 2023-07-22 09:32 | W.PN.HOSP.TC ---
Addendum entered and electronically signed by Lyle Haq MD 07/22/23 15:00:
More than 30 minutes spent in discharge including
Final examination of the patient
Summarizing hospital stay
Instructions for continuing care to all relevant caregivers
Preparation of discharge records, prescriptions, and referral forms
Total time spent (in minutes): 50
Original Note:
Today's Communication/Plan
-
IV abx
CM
ID recs
pain control
Assessment / Plan
Assessment / Plan
General: Well Developed, Well Nourished and No Apparent Distress
HEENT: NormoCephalic, Moist mucous membranes and Atraumatic
Respiratory: Clear
Cardiac: S1/S2 and Regular Rhythm
GI: Soft, Non Tender, Non Distended and Normal Bowel Sounds
MSK: right knee immobilizer, R lateral thigh with erythema-no collection felt on palpation. Patient was lying on her right side.
Neuro: AO x 3 and Nonfocal/grossly intact
Psych: Calm
Sepsis secondary to strep pyogenes abscess and cellulitis
Does have associated myositis
Follow fever curve, continues to spike fever
-ESR 27,CRP >270
-Blood culture NGTD
-first ortho tapped knee in ED; then later since didnt improve US guided aspiration was done by IR. still with no improvement 07/18, MRI was done which showed abscess. Status post OR by orthopedics 07/19/2023 with I&D.
-Drain removed. Monitor. Culture from bursa growing strep pyogenes, wound culture from abscess is also growing strep pyogenes.
-Nonweightbearing right lower extremity, knee immobilizer to the right knee. Right lateral erythema likely due to knee immobilizer in position. Will await further ID recs. Per orthopedics monitor and not concerned.
-Status post clindamycin. Plan for cefazolin 2 g 3 times daily for 2 weeks. Midline placed.
-Pain control patient also follow-up with standing OxyContin p.o. started p.o. Percocet which per patient has helped in the past.
-ID and orthopedics following
blood pressure slowly improving
Metabolic acidosis
resolved
Constipation
laxatives Colace, senna and Dulcolax ordered
# Hyponatremia
Resolved.
Anemia, suspect anemia chronic disease
Monitor
Hypokalemia
Replete and monitor.
Acute kidney injury
Resolved
#DVT prophylaxis
lovenox
#CODE status
-full code
PT/OT-VN and DME upon dc.
Dispo-awaiting IV infusion set up to be completed. Pain control. ID recs.
Anticipated Discharge: Today
Subjective/Interval History
-
Date of Service: July 22, 2023
states of pain at R knee
Denies pain at R thigh region
had multiple BM with laxatives
Objective Data
-
Labs:
Laboratory Results
07/22/23
04:28
WBC 9.8
Hgb 8.7 L
Hct 25.1 L
Plt Count 288 D
Sodium 135
Potassium 3.7
Chloride 103
Carbon Dioxide 25
BUN 10
Creatinine 0.6
Glucose 89
Calcium 7.9 L
Total Bilirubin 0.4
AST 39 H
ALT 19
Alkaline Phosphatase 105
Vital Signs:
Vital Signs
Temp Pulse Resp BP Pulse Ox
98.8 F 76 16 121/78 99
07/22/23 07:45 07/22/23 07:45 07/22/23 07:45 07/22/23 07:45 07/22/23 07:45
I&O
07/21/23 07/22/23 07/23/23
06:59 06:59 06:59
Intake Total 2400 / 2400 160 / 160
Output Total 450 / 450
Balance 1949 / 1949 160 / 160
--- NOTE | 2023-07-22 12:52 | W.DCSUMMARY ---
Discharge Summary
Discharge Data
Date of Admission: 07/17/23
Date of Discharge: 07/22/23
-
Pending Results: No
Hospital Course
38-year-old female with no significant past medical history presenting with right knee pain. first ortho tapped knee in ED; then later since did not improve US guided aspiration was done by IR. still with no improvement on 07/18, MRI was done which
showed abscess. Status post OR by orthopedics 07/19/2023 with I&D. SUSANNA drain was placed. Patient was started on antibiotics per infectious disease. Patient prepatellar and OR cultures were positive with strep pyogenes. Patient finished course of
clindamycin in the hospital and was continued on cefazolin per ID. Patient with nonweightbearing of right lower extremity. Right knee immobilizer in place. Was seen by and physical therapy. Right lateral thigh erythema was seen secondary to knee
immobilizer. Per orthopedic not concern and continue to monitor. Patient with severe acidosis and GEOFFREY which resolved. Constipation resolved with laxatives. Patient pain controlled with Oxycodon. Patient refused OxyContin. Patient received
midline will be going home on IV antibiotics and outpatient orthopedic follow-up and Infectious disease follow up.
Discharge Plan
-
Patient Disposition: Home with Home Care
Discharge Diagnosis/Procedures: Sepsis secondary to strep pyogenes Right knee abscess and cellulitis
myositis
Leukocytosis
Fever
metabolic acidosis
Hypokalemia
anemia
Acute renal failure
Condition: Fair
Diet: As tolerated
Activity: As tolerated
Additional Activity: Weightbearing as tolerated right lower extremity in knee immobilizer
Driving Restrictions: No driving
Blood Work: cbc and bmp in 1 week via primary doctor
Other Services: VN
Referrals:
Juan Luis Gillespie DO [Family Provider] - in less than 1 week
Zhang Waterman DO [Active] - in one to two weeks (call to make appointment. )
Raul Kilpatrick MD [Active] - in one to two weeks (call to make appt. )
Prescriptions:
New
cefazolin 10 gram Recon Soln
2 g IV Q8H
acetaminophen 325 mg Tablet
650 mg PO Q6H 10 Days Qty: 80 0RF
polyethylene glycol 3350 [HealthyLax] 17 gram Powder In Packet
17 g PO DAILY 7 Days Qty: 7 0RF
oxycodone 10 mg Tablet
10 mg PO Q6HPRN PRN (Reason: severe pain) Qty: 25 0RF
Changed
ibuprofen 600 mg tablet
600 mg PO DAILYPRN PRN (Reason: MILD PAIN) Qty: 0 0RF
Discharge Orders:
Discharge Patient (As Directed); Ordered 07/22/23
Ordered By: Lyle Haq
Discharge Date and Time
Print Language: SWEDISH
--- NOTE | 2023-07-22 13:35 | W.PN.ID1 ---
Date of Service
Date of Service: July 22, 2023
Today's Communication
cefazolin 2 g IV every 8 hours (d#6) - tentatively for a [address] Waterman will follow in the office.
Assessment / Plan
Right knee pain and swelling
- bursa culture positive for group A strep.
- Joint culture pending.
- myositis
Right knee cellulitis
-Still with thigh edema, but less tenderness today.
Leukocytosis
Fever
Elevated CRP
Recommendations:
cefazolin 2 g IV every 8 hours (d#6) - tentatively for a 2 week course
Clindamycin dc'd
Home IV sheet will be placed on paper chart.
Midline in palce
Lower extremity elevation.
Monitor white count and temperature curve.
Dr Waterman will follow in the office.
����������������������������������������������������������
Chief Complaint
-: Other (Right knee cellulitis; right lower extremity cellulitis)
Subjective / Review of Systems
afebrile
bp stable
without leukocytosis
cr stable
cellulitic area less tender
no complaints
Vital Signs / Physical Exam
Vital Signs
Vital Signs
Temp Pulse Resp BP Pulse Ox
98.8 F 76 16 121/78 99
07/22/23 07:45 07/22/23 07:45 07/22/23 07:45 07/22/23 07:45 07/22/23 10:03
Physical Exam
Constitutional: No Acute Distress
Cardiovascular: Regular Rate and S1/S2; Negative Murmur or Rub
Pulmonary: Clear and Symmetric; Negative Wheezes or Rales
Gastrointestinal: Soft, Non Tender, Non Distended and Normal Bowel Sounds
Extremities: Other (proximal right leg area less firm/tender, remains red)
Skin: Warm and Dry; Negative Rash or Jaundice
Lines: PICC (midline)
Objective Data
Lab Data
Lab Results
07/22/23 04:28
07/22/23 04:28
ESR 76 mm/hour (0-20) H 07/19/23 04:28
Estimated Creat Clear 124 ml/min 07/22/23 04:28
Lactic Acid Cancelled 07/17/23 17:00
Total Bilirubin 0.4 mg/dl (0.2-1.3) 07/22/23 04:28
AST 39 U/L (14-36) H 07/22/23 04:28
ALT 19 U/L (0-35) 07/22/23 04:28
Alkaline Phosphatase 105 U/L (38-126) 07/22/23 04:28
C-Reactive Protein 193.70 mg/L (0.0-10.00) H 07/21/23 05:59
Most recent labs reviewed.
Micro Results:
07/17/23 12:53 Blood Culture - Final
Blood/Venous No Growth - Final Report
07/17/23 12:43 Blood Culture - Final
Blood/Venous No Growth - Final Report
07/18/23 14:53 Body Fluid Culture - Final
Synovial Fluid No Growth After 72 Hours
Gram Stain - Final
07/19/23 18:45 Wound Culture - Preliminary
Knee - Right Streptococcus pyogenes
Gram Stain - Preliminary
07/18/23 14:53 Body Fluid Culture - Final
Synovial Fluid Streptococcus pyogenes
Gram Stain - Final
07/19/23 18:45 Anaerobic Culture - Preliminary
Knee - Right Culture pending. Anaerobic cultures are examined after 3
days incubation. Additional information to follow.
Imaging:
07/08/2023 Right knee x-ray: Mild prepatellar soft tissue swelling. No significant joint effusion. No displaced fracture or dislocation. Please see full dictation for additional detail.
--- NOTE | 2023-07-22 14:23 | CM ---
Addendum entered by Elmira Rodriguez RN 07/22/23 14:58:
Received callback from Mike Howe; they received approval from [employer]. Carley will do teaching visit today around 3pm. Patient can be discharged today after that and they will deliver the med & supplies to her home today prior to her
next dose at 10pm.
Spoke with patient and provided update as above. She is happy to be going home today and agrees to the plan.
Plan home with [facility] for Home IV Infusion, with midline, with RW & crutches.
Original Note:
Patient with Dx right knee cellulitis s/p right knee abscess I&D. Per Ortho Notes: Daily dry dressing changes. Midline.
Met with patient this morning who states she feels ready for d/c once she is taught how to do IV Abx administration. Her boyfriend will transport her home.
Spoke with June [employer] (ph [phone], direct [phone], fax [phone]); she will approve [facility] after CM speaks to [employer] ANTONIO Mcnally.
Spoke with ANTONIO Mcnally [facility] ([phone], fax [phone]); provided clinical update of d/c needs. Clinical sent via Active Fax.
Spoke with L[facility]; they are working on [employer] approval for home infusion then Carley will do teaching visit.
Plan follow up with [facility] if home infusion approved and teaching visit completed.
Plan home with [facility] for Home IV Infusion, with PICC line, with RW & crutches.
--- NOTE | 2023-07-22 14:58 | W.[place]-PDMP ---
[place]-PD[place]
-
Checked the [place]- Prescription Drug Monitoring Program website, no red flags identified; safe to proceed with prescription.
[2023-07-22 15:01] VITALS: BP 123/79
--- NOTE | 2023-07-22 15:03 | CM ---
Addendum entered by Elmira Rodriguez RN 07/22/23 15:04:
Received callback from Mike Howe; they received approval from [employer]. Carley will do teaching visit today around 3pm. Patient can be discharged today after that and they will deliver the med & supplies to her home today prior to her
next dose at 10pm.
Spoke with patient and provided update as above. She is happy to be going home today and agrees to the plan.
Plan home with [facility] for Home IV Infusion, with RW & crutches.
Original Note:
Patient with Dx right knee cellulitis s/p right knee abscess I&D. Per Ortho Notes: Daily dry dressing changes. Midline.
Met with patient this morning who states she feels ready for d/c once she is taught how to do IV Abx administration. Her boyfriend will transport her home.
Spoke with June Certified Medical Coder (ph [phone], direct [phone], fax [phone]); she will approve [facility] after CM speaks to [employer] ANTONIO Mcnally.
Spoke with ANTONIO Mcnally [facility] ([phone], fax [phone]); provided clinical update of d/c needs. Clinical sent via Active Fax.
Spoke with L[facility]; they are working on [employer] approval for home infusion then Carley will do teaching visit.
Plan follow up with [facility] if home infusion approved and teaching visit completed.
Plan home with [facility] for Home IV Infusion, with RW & crutches.
--- NOTE | 2023-07-22 16:32 | PTCARENOTE ---
IV infusion nurse in to see patient and do education; she stated abx will be delivered to patient's home by 8pm. Patient had no questions with d/c instructions and stated she already made appt with Dr Waterman.
[2023-07-24 16:56] LABS: Lyme Ab Western Blot IgG Negative (Negative); Lyme Ab Western Blot IgM Negative (Negative)
== END 2023-07-22 16:33 | disposition home health service (06) | DRG 854 ==
LOC: IMU 14:29
PROVIDERS: Orthopaedic Surgery; Radiology Diagnostic Radiology; Registered Nurse; ADMITTING PHYSICIAN Internal Medicine; ATTENDING PHYSICIAN Hospitalist; CONSULT PHYSICIAN Internal Medicine Infectious Disease; EMERGENCY PHYSICIAN Emergency Medicine; FAMILY PHYSICIAN Family Medicine
PROC: 0Y9F3ZX Drainage of Right Knee Region, Percutaneous Approach, Diagnostic (ICD-10-PCS; 2023-07-17)
PROC: 0S9C3ZX Drainage of Right Knee Joint, Percutaneous Approach, Diagnostic (ICD-10-PCS; 2023-07-18)
PROC: 0JBN0ZZ Excision of Right Lower Leg Subcutaneous Tissue and Fascia, Open Approach (ICD-10-PCS; 2023-07-19)
DX: A40.0 Sepsis due to streptococcus, group A (principal); E87.1 Hypo-osmolality and hyponatremia; N17.9 Acute kidney failure, unspecified; L03.115 Cellulitis of right lower limb; E87.20 Acidosis, unspecified; L02.415 Cutaneous abscess of right lower limb; E86.0 Dehydration; F17.200 Nicotine dependence, unspecified, uncomplicated; W01.10XA Fall on same level from slipping, tripping and stumbling with subsequent striking against unspecified object, initial encounter; Y93.H3 Activity, building and construction; Y92.61 Building [any] under construction as the place of occurrence of the external cause; Y99.0 Civilian activity done for income or pay; E87.6 Hypokalemia; D64.9 Anemia, unspecified; K59.00 Constipation, unspecified; R79.82 Elevated C-reactive protein (CRP); M60.851 Other myositis, right thigh
CPT/HCPCS: 20610; 73720; 73723; 76942; 80048; 80053; 80202; 81003; 82550; 83605; 83930; 83935; 84300; 84703; 85025; 85027; 85652; 86140; 86617; 86618; 87015; 87040; 87070; 87075; 87077; 87147; 87205; 89051; 89060; 96361; 96374; 96375; 97116; 97163; 97167; 99284; A9575